=== PATIENT | female | born 1985 | race Caucasian/White ===

== ENCOUNTER → 2020-09-30 | Outpatient (CLI) | payer OTHER ==
--- NOTE | 2020-10-01 23:46 | ECWPNPC ---
PATIENT NAME: SONIA OLVERA : 1985 GENDER: FEMALE VISIT DATE: 09/30/2020 DISCHARGE DATE: 09/30/20 0940 VISIT LOCKED DATE TIME: PHYSICIAN: WILLIAM BAIRES RESOURCE: WILLIAM BAIRES REASON FOR APPOINTMENT 1. LOW BACK PAIN HISTORY OF PRESENT ILLNESS DEPRESSION SCREENING: PHQ-9 LITTLE INTEREST OR PLEASURE IN DOING THINGSSEVERAL DAYS FEELING DOWN, DEPRESSED, OR HOPELESSSEVERAL DAYS TROUBLE FALLING OR STAYING ASLEEP, OR SLEEPING TOO MUCHNEARLY EVERY DAY FEELING TIRED OR HAVING LITTLE ENERGYSEVERAL DAYS POOR APPETITE OR OVEREATING NOT AT ALL FEELING BAD ABOUT YOURSELF-OR THAT YOU ARE A FAILURE OR HAVE LET YOURSELF OR YOUR FAMILY DOWN NEARLY EVERY DAY TROUBLE CONCENTRATING ON THINGS, SUCH READING THE NEWSPAPER OR WATCHING TELEVISION SEVERAL DAYS MOVING OR SPEAKING SO SLOWLY THAT OTHER PEOPLE COULD HAVE NOTICED. OR THE OPPOSITE- BEING SO FIDGETY OR RESTLESS THAT YOU HAVE BEEN MOVING AROUND A LOT MORE THAN USUALSEVERAL DAYS THOUGHTS THAT YOU WOULD BE BETTER OFF , OR OF HURTING YOURSELF IN SOME WAY?SEVERAL DAYS(CONSIDER SUICIDE ASSESSMENT RISK) TOTAL SCORE:12 INTERPRETATIONMODERATE DEPRESSION PHQ-2 (2015 EDITION) LITTLE INTEREST OR PLEASURE IN DOING THINGS?SEVERAL DAYS FEELING DOWN, DEPRESSED, OR HOPELESS?MORE THAN HALF THE DAYS TOTAL SCORE3 GENERAL: 34-YEAR-OLD FEMALE BEING REFERRED FOR CHRONIC LOW BACK PAIN. SHE IS NEW TO THE AREA. HISTORY OF LUMBAR SURGERY IN 2012. WAS RECEIVING PAIN MANAGEMENT SERVICES SINCE SURGERY. COMPLAINING OF CONSTANT LEFT LOW BACK PAIN THAT RADIATES INTO LEFT GROIN. PAIN IS AGGRAVATED BY RANGE OF JOINT MOTION OF THE SPINE. HAS RESPONDED WELL TO BOTH GABAPENTIN AND ROBAXIN IN THE PAST. STATES SHE WAS ON NARCOTIC PAIN MEDICATIONS AT ONE POINT AND TOOK HERSELF OFF DUE TO FEARS OF ADDICTION A FEW YEARS AGO. SHE IS NOT INTERESTED IN NARCOTIC PAIN MEDICATION. SHE MAY BE INTERESTED IN TRYING SOME INJECTION THERAPY. DENIES RECENT INJURY. DENIES BOWEL INCONTINENCE OR BLADDER INCONTINENCE. NO RECENT ILLNESS OR SUDDEN WEIGHT LOSS. - - -. FALL RISK SCREENING: SCREENING :ONE FALL WITHOUT INJURY IN THE PAST YEAR IN OCT HER LEFT LEG GAVE OUT ON HER AND SHE SLIPPED DOWN THE STAIRS PAIN SCREENING: PATIENT HAS A COMPLAINT OF ACUTE OR CHRONIC PAIN :YES LOCATION OF PAIN:LOW BACK LEFT HIP INTENSITY OF PAIN (SCALE OF 1 TO 10):5 AVERAGE 4 WHAT DOES YOUR PAIN FEEL LIKE:ACHING, CONTINOUS, STABBING, OTHER TINGLY, COLD, MUSCLE SPASMS DURATION:CONTINOUS, CONSTANT, AWAKENS FROM SLEEP PAIN IS INCREASED BY:ACTIVITIES EVERYTHING PAIN IS DECREASED BY: MEDICATION AND INJECTIONS- GABAPENTIN & ROBAXIN HAS HELPED IN THE PAST. WAS SEEN AT PAIN CENTER IN [place] AND HAD SEVERAL INJECTIONS WHICH WERE EFFECTIVE PAIN HAS INTERFERED WITH THE FOLLOWING: EVERYTHING NURSING NOTE: SEES [facility]-IN [place]- AND IS IN THE PROCESS OF GETTING AN APPT WITH A PSYCHIATRIST - -. PAIN CENTER INTAKE QUESTIONS: DO YOU HAVE A HISTORY OF MRSA? :NO DO YOU TAKE A BLOOD THINNERS? :NO DO YOU HAVE ANY BLEEDING DISORDERS? :NO ANY NEW NUMBNESS OR WEAKNESS IN YOUR LEGS OR ARMS? :NO ANY PACEMAKER,DEFIBRILLATOR, OR DORSAL COLUMN STIMULATOR? :NO DO YOU HAVE ANY RASHES OR OPEN SORES? :NO ARE YOU ALLERGIC TO IV DYE? :NO ARE YOU DIABETIC? :NO ANY NEW PROBLEMS WITH YOUR MEDICATIONS? :NO HAVE YOU RECEIVED A VACCINE IN THE PAST 30 DAYS? :NO DO YOU PLAN TO RECEIVE A VACCINE IN THE NEXT 21 DAYS? :NO DO YOU NEED ANY PRESCRIPTION? :NO DO YOU TAKE ANY IMMUNOSUPPRESSIVE MEDICATIONS? :NO CURRENT MEDICATIONS TAKING SEROQUEL 400 MG TABLET 1 TAB ORALLY DAILY TAKING LAMICTAL 200 MG TABLET 1 TABLET ORALLY THREE TIMES DAILY TAKING PRAZOSIN HCL 1 MG CAPSULE 1 CAP ORALLY BEFORE BEDTIME TAKING ADDERALL 30 MG TABLET 1 TABLET ORALLY DAILY TAKING IBUPROFEN 200 MG TABLET 3 TABLETS WITH FOOD OR MILK NEEDED ORALLY THREE TIMES A DAY NEEDED TAKING MAY USE CBD OIL TOPICALLY OR ORALLY FOUR TIMES DAILY NEEDED MEDICATION LIST REVIEWED AND RECONCILED WITH THE PATIENT PAST MEDICAL HISTORY CHRONIC BACK PAIN WITH SEVERE LEG NERVE DAMAGE-LEFT NECK PAIN BIPOLAR DISORDER ADD DEPRESSION PTSD BILATERAL HIP PAIN OVER WEIGHT ALLERGIES SEASONAL: ITCHY EYES,NASAL CONGESTION SURGICAL HISTORY MICRO DISECTOMY 2013 L4-5,L5-S1 FUSION 2018 WISDOM TEETH EXTRACTION MULTIPLE PAIN INJECTIONS 2017 FAMILY HISTORY MOTHER: , LUNG CANCER 1DAUGHTER(S) - HEALTHY. UNKNOWN HX FOR FATHER. SOCIAL HISTORY GENERAL: TOBACCO USE ARE YOU A:FORMER SMOKER HOW LONG HAS IT BEEN SINCE YOU LAST SMOKED?1-3 MONTHS E-CIGARETTEYES 1-5 TIMES DAILY. PT NOT INTERESTED IN QUITTING LATEX QUESTIONNAIRE LATEX ALLERGY : HAVE YOU EVER DEVELOPED ANY TYPE OF REACTION AFTER HANDLING LATEX PRODUCTS SUCH RUBBER GLOVES, CONDOMS, DIAPHRAGMS, BALLOONS, SOCKS, OR UNDERWEAR?NO LATEX ALLERGY : HAVE YOU EVER DEVELOPED ANY TYPE OF REACTION DURING OR AFTER DENTAL APPOINTMENT, VAGINAL/RECTAL EXAMINATION, SURGICAL PROCEDURE, OR ANY OTHER EXPOSURE?NO LATEX RISK : HAVE YOU EVER HAD ANY DIFFICULTY BREATHING OR HIVES AFTER EATING OR HANDLING ANY FRUITS, OR VEGETABLES; SUCH KIWI, BANANAS, STONE FRUITS, OR CHESTNUTSNO LATEX RISK : DO YOU HAVE A PREVIOUS PERSONAL HISTORY OF MORE THAN NINE SURGERIES, SPINA BIFIDA, OR REPEATED CATHERIZATIONS? NO LATEX RISK : ARE YOU FREQUENTLY EXPOSED TO LATEX PRODUCTS IN YOUR OCCUPATION?NO DATE ASKED : 09/29/2020 ALCOHOL SCREENING DID YOU HAVE A DRINK CONTAINING ALCOHOL IN THE PAST YEAR?NO POINTS0 INTERPRETATIONNEGATIVE RECREATIONAL DRUG USE DRUG USE?NO DOES CBD OIL FOR PAIN/INFLAMMATION LANGUAGE LANGUAGES SPOKEN:JORDANIAN EDUCATION LEVEL OF EDUCATION:HIGH SCHOOL LEARNING BARRIERS / SPECIAL NEEDS BARRIERS TO LEARNING?YES COMMENTS TROUBLE HEARING AND LIGHT SENSITIVITY HEARING IMPAIRED?YES MATCH-E-BE-NASH-SHE-WISH BAND RIGHT EAR VISION IMPAIRED?YES LIGHT SENSITIVITY. 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 DIET: REGULAR. MARITAL STATUS: . PAIN CLINIC PFS, CLERGY, PUBLIC HEALTH REFERRALS PFS REFERRAL NEEDED?NO CLERGY REFERRAL NEEDED?NO PUBLIC HEALTH REFERRAL NEEDED?NO HAS THE PATIENT BEEN EDUCATED REGARDING HIS/HER PLAN OF CARE?YES HAS THE PATIENT BEEN EDUCATED REGARDING PAIN, THE RISK FOR PAIN, THE IMPORTANCE OF EFFECTIVE PAIN MANAGEMENT, AND THE PAIN ASSESSMENT PROCESS?YES ADVANCE DIRECTIVE ADVANCE DIRECTIVE DISCUSSED WITH PATIENT:YES 09/30/2020 PATIENT DOES NOT HAVE ANY ADVANCED DIRECTIVES AND SHE DECLINES INFORMATION ON HCP AT THIS TIME HOSPITALIZATION/MAJOR DIAGNOSTIC PROCEDURE SURGERIES REVIEW OF SYSTEMS CONSTITUTIONAL: ANY RECENT FEVER NO . CHILLS NO . WEIGHT CHANGE OF UNKNOWN REASONS NO . MUSCULOSKELETAL: ANY UNUSUAL JOINT PAIN OR SWELLING NOT MENTIONED NO . SYSTEMIC LUPUS NO . ANY NEUROMUSCULAR DISORDER NOT MENTIONED NO . LYME DISEASE NO . GASTROENTEROLOGY: ANY NEW CHANGE IN BOWEL CONTROL? NO . HISTORY OF LIVER DISORDER NOT MENTIONED NO . HISTORY OF UNUSUAL ABDOMINAL PAIN OR CRAMPING NOT MENTIONED NO . NO CONSTIPATION. GENITOURINARY: ANY NEW CHANGE IN BLADDER CONTROL? NO . ANY RENAL/KIDNEY CONDITON NOT MENTIONED NO . NEUROLOGY: HISTORY OF TBI NOT MENTIONED NO . OTHER NEW NUMBNESS OR PAIN PATTERNS NOT MENTIONED NO . NEW ONSET DIZZINESS OR NEUROLOGICAL CHANGES NOT MENTIONED NO . HISTORY OF SEVERE HEADACHES NOT MENTIONED NO . HISTORY OF STROKE OR NEUROLOGICAL DISORDER NOT MENTIONED NO . CARDIOLOGY: HEART SURGERY NO . CONGESTIVE HEART FAILURE/FLUID OVERLOAD NOT MENTIONED NO . HISTORY OF CHEST PAIN,IRREGULAR HEART BEAT NOT MENTIONED NO . RESPIRATORY: SHORTNESS OF BREATH ON EXERTION, WHEEZES, UNUSUAL COUGH NOT MENTIONED NO . ENDOCRINOLOGY: ADRENAL GLAND OR THYROID DISORDERS NOT MENTIONED NO . UNUSUAL URINATION, DIZZINESS OR LETHARGY NOT MENTIONED NO . VITAL SIGNS WT 242.4 LBS, HT 64 IN, BMI 41.60 INDEX, BP 135/96 MM HG, HR 96 /MIN, RR 18 /MIN, TEMP 98.5 F, OXYGEN SAT % 99%, SAFE IN ENV? (Y/N) Y, NA INITIALS TX 08:38, REVIEWED BY: Betty GARCIA RN, LMP: 09/13/2020. EXAMINATION GENERAL EXAMINATION: GENERAL AWAKE,ALERT ,PLEASANT . PSYCH AFFECT NORMAL . NECK: TRACHEA MIDLINE. NO CERVICAL OR SUPRACLAVICULAR LYMPHADENOPATHY NOTED. LUNGS: LUNG BERGER ARE CLEAR TO AUSCULTATION BILATERALLY. GOOD MOVEMENT OF AIR . HEART: S1, S2 IN A REGULAR RATE AND RHYTHM. NO SIGNIFICANT MURMURS, RUBS OR GALLOPS NOTED . ABDOMEN: SOFT/NONTENDER. MUSCULOSKELETAL: MUSCLE STRENGTH TESTING : MILD WEAKNESS NOTED OVER LEFT LEG. LUMBAR: PALPATION: NEGATIVE FOR PAIN OVER L/S SPINE. NEGATIVE FOR PAIN OVER L/S PARASPINALS. , TRIGGER POINTS:. CERVICAL: NEGATIVE FOR PAIN WITH PALPATION OF CERVICAL SPINE. NEGATIVE FOR PAIN WITH PALPATION OF CERVICAL PARASPINALS. NEGATIVE FOR PAIN WITH PALPATION OF TRAPEZIUS BILAT. SKIN: NO RASH OR SKIN LESIONS. NEUROLOGIC EXAM:DECREASED SENSATION TO LIGHT TOUCH LEFT LATERAL THIGH. DIAGNOSTIC TESTS REVIEWED MRI L/S SPINE-2018 . ASSESSMENTS POSTLAMINECTOMY SYNDROME - M96.1 (PRIMARY) TREATMENT POSTLAMINECTOMY SYNDROME START GABAPENTIN CAPSULE, 100 MG, 1 CAPSULE, ORALLY, BID, 30 DAY(S), 60 CAPSULE, REFILLS 2 START ROBAXIN-750 TABLET, 750 MG, 1 TABLET, ORALLY, BID NEEDED FOR SEVERE PAIN, 30 DAY(S), 45, REFILLS 2 NOTES: START GABAPENTIN 100 MG 1 AT BEDTIME 3 DAYS THEN INCREASE TO MORNING AND NIGHT. START ROBAXIN 750 MG 1 EVERY 8 HOURS NEEDED FOR SEVERE PAIN EPISODES WITH MAXIMUM DAILY DOSE OF 2. PATIENT WILL CONTINUE WITH TOPICAL CBD PRODUCTS. FOLLOW-UP WILL BE SCHEDULED IN 2 MONTHS. PREVENTIVE MEDICINE PAIN CLINIC TEACHING: MEDICATIONS PATIENT DECLINED PRINTED INFORMATION ON GABAPENTIN AND ROBAXIN STATING SHE HAS TAKEN THEM IN THE PAST AND IS FAMILIAR WITH THEM. ALSO DECLINED MED REVIEW . PROCEDURE CODES FA211 ESTABILISHED PATIENT [facility] CHARGE DISPOSITION & COMMUNICATION FOLLOW UP 2 MONTHS (REASON: FOLLOW-UP ON NEW START OF ROBAXIN/GABAPENTIN FOR POST LAMINECTOMY SYNDROME) ELECTRONICALLY SIGNED BY IMTIAZ CASTELLON ON 10/01/2020 AT 11:47 AM EST DISCLAIMER : THIS IS A VISIT SUMMARY EXTRACTED FROM THE [employer] CHART. IT IS NOT A COPY OF THE [employer] PROGRESS NOTE. JUNAID
== END ==
LOC: M PAIN 08:30
PROVIDERS: ATTEND Nurse Practitioner Family
DX: M96.1 Postlaminectomy syndrome, not elsewhere classified (principal); M54.2 Cervicalgia; F31.9 Bipolar disorder, unspecified; F90.9 Attention-deficit hyperactivity disorder, unspecified type; F43.10 Post-traumatic stress disorder, unspecified; E66.3 Overweight; F17.290 Nicotine dependence, other tobacco product, uncomplicated; Z68.41 Body mass index [BMI] 40.0-44.9, adult; J30.2 Other seasonal allergic rhinitis; Z79.899 Other long term (current) drug therapy

== ENCOUNTER → 2020-11-30 | Outpatient (CLI) | payer OTHER ==
--- NOTE | 2020-12-02 01:02 | ECWPNPC ---
PATIENT NAME: SONIA OLVERA : 1985 GENDER: FEMALE VISIT DATE: 11/30/2020 DISCHARGE DATE: 11/30/20 1226 VISIT LOCKED DATE TIME: PHYSICIAN: WILLIAM BAIRES RESOURCE: WILLIAM BAIRES REASON FOR APPOINTMENT 1. FOLLOW-UP ON NEW START OF ROBAXIN/GABAPENTIN FOR POST LAMINECTOMY SYNDROME HISTORY OF PRESENT ILLNESS GENERAL: HERE FOR FOLLOW-UP OF PERSISTENT LOW BACK PAIN WITH A HISTORY OF POSTLAMINECTOMY SYNDROME. AT HER INITIAL VISIT A FEW MONTHS AGO WE STARTED HER ON GABAPENTIN 100 MG TWICE A DAY AND ROBAXIN TWICE A DAY. STATES MEDICATION IS HELPFUL BUT SHE FEELS IT WEARS OFF MID DAY. WORST AREA OF PAIN IS LEFT HIP WITH RADIATION INTO LEFT GROIN. THIS HAS BEEN A CHRONIC ISSUE BUT HAS BEEN AGGRAVATED AFTER A FALL INJURY A FEW MONTHS AGO. REVIEWED X-RAY IMAGING OF HER LEFT HIP. PATIENT STATES SHE HAD IMPROVEMENT WITHL LEFT HIP INJECTION AT PAIN CLINIC IN [place] IN THE PAST. -. FALL RISK SCREENING: SCREENING :TWO OR MORE FALLS WITH INJURY IN THE PAST YEAR PATIENT WENT TO [facility] FOR TREATMENT FOR ONE OF THE INJURIES AFTER FALLING DOWN STAIRS. PAIN SCREENING: PATIENT HAS A COMPLAINT OF ACUTE OR CHRONIC PAIN :YES LOCATION OF PAIN:LOW BACK, LEFT HIP INTENSITY OF PAIN (SCALE OF 1 TO 10):6 WHAT DOES YOUR PAIN FEEL LIKE:CONTINOUS, INTERMITTENT, SHARP, STABBING, OTHER POPPING, PINS AND NEEDLES DURATION:CONTINOUS, STEADY PAIN IS INCREASED BY:ACTIVITIES, PROLONGED STANDING PAIN IS DECREASED BY:USE OF PAIN MEDICATIONS GABAPENTIN, MOTRIN, MUSCLE RELAXERS, HEAT NURSING NOTE: -. PAIN CENTER INTAKE QUESTIONS: DO YOU HAVE A HISTORY OF MRSA? :NO DO YOU TAKE A BLOOD THINNERS? :NO DO YOU HAVE ANY BLEEDING DISORDERS? :NO ANY NEW NUMBNESS OR WEAKNESS IN YOUR LEGS OR ARMS? :NO ANY PACEMAKER,DEFIBRILLATOR, OR DORSAL COLUMN STIMULATOR? :NO DO YOU HAVE ANY RASHES OR OPEN SORES? :NO ARE YOU ALLERGIC TO IV DYE? :NO ARE YOU DIABETIC? :NO ANY NEW PROBLEMS WITH YOUR MEDICATIONS? :NO HAVE YOU RECEIVED A VACCINE IN THE PAST 30 DAYS? :NO DO YOU PLAN TO RECEIVE A VACCINE IN THE NEXT 21 DAYS? :NO DO YOU NEED ANY PRESCRIPTION? :YES GABAPENTIN AND ROBAXIN DO YOU TAKE ANY IMMUNOSUPPRESSIVE MEDICATIONS? :NO IS THERE A CHANCE YOU COULD BE ? :NO ARE YOU BREAST FEEDING? :NO CURRENT MEDICATIONS TAKING SEROQUEL 400 MG TABLET 1 TAB ORALLY DAILY TAKING LAMICTAL 200 MG TABLET 1 TABLET ORALLY THREE TIMES DAILY TAKING PRAZOSIN HCL 1 MG CAPSULE 1 CAP ORALLY BEFORE BEDTIME TAKING IBUPROFEN 200 MG TABLET 3 TABLETS WITH FOOD OR MILK NEEDED ORALLY THREE TIMES A DAY NEEDED TAKING MAY USE CBD OIL TOPICALLY OR ORALLY FOUR TIMES DAILY NEEDED TAKING GABAPENTIN 100 MG CAPSULE 1 CAPSULE ORALLY BID TAKING ROBAXIN-750 750 MG TABLET 1 TABLET ORALLY BID NEEDED FOR SEVERE PAIN NOT-TAKING ADDERALL 30 MG TABLET 1 TABLET ORALLY DAILY MEDICATION LIST REVIEWED AND RECONCILED WITH THE PATIENT PAST MEDICAL HISTORY CHRONIC BACK PAIN WITH SEVERE LEG NERVE DAMAGE-LEFT NECK PAIN BIPOLAR DISORDER ADD DEPRESSION PTSD BILATERAL HIP PAIN OVER WEIGHT ALLERGIES SEASONAL: ITCHY EYES,NASAL CONGESTION SOCIAL HISTORY GENERAL: TOBACCO USE ARE YOU A:FORMER SMOKER HOW LONG HAS IT BEEN SINCE YOU LAST SMOKED?1-3 MONTHS E-CIGARETTEYES 1-5 TIMES DAILY. PT NOT INTERESTED IN QUITTING LATEX QUESTIONNAIRE LATEX ALLERGY : HAVE YOU EVER DEVELOPED ANY TYPE OF REACTION AFTER HANDLING LATEX PRODUCTS SUCH RUBBER GLOVES, CONDOMS, DIAPHRAGMS, BALLOONS, SOCKS, OR UNDERWEAR?NO LATEX ALLERGY : HAVE YOU EVER DEVELOPED ANY TYPE OF REACTION DURING OR AFTER DENTAL APPOINTMENT, VAGINAL/RECTAL EXAMINATION, SURGICAL PROCEDURE, OR ANY OTHER EXPOSURE?NO LATEX RISK : HAVE YOU EVER HAD ANY DIFFICULTY BREATHING OR HIVES AFTER EATING OR HANDLING ANY FRUITS, OR VEGETABLES; SUCH KIWI, BANANAS, STONE FRUITS, OR CHESTNUTSNO LATEX RISK : DO YOU HAVE A PREVIOUS PERSONAL HISTORY OF MORE THAN NINE SURGERIES, SPINA BIFIDA, OR REPEATED CATHERIZATIONS? NO LATEX RISK : ARE YOU FREQUENTLY EXPOSED TO LATEX PRODUCTS IN YOUR OCCUPATION?NO DATE ASKED : 11/30/2020 ALCOHOL USE: NO. ALCOHOL SCREENING DID YOU HAVE A DRINK CONTAINING ALCOHOL IN THE PAST YEAR?NO POINTS0 INTERPRETATIONNEGATIVE RECREATIONAL DRUG USE DRUG USE?NO DOES CBD OIL FOR PAIN/INFLAMMATION LANGUAGE LANGUAGES SPOKEN:ECU[place]OREAN EDUCATION LEVEL OF EDUCATION:HIGH SCHOOL LEARNING BARRIERS / SPECIAL NEEDS CHANGE FROM LAST VISIT?NO BARRIERS TO LEARNING?YES COMMENTS TROUBLE HEARING AND LIGHT SENSITIVITY HEARING IMPAIRED?YES [place] RIGHT EAR VISION IMPAIRED?YES LIGHT SENSITIVITY. 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 DIET: REGULAR. MARITAL STATUS: . - PFS REFERRAL NEEDED?NO CLERGY REFERRAL NEEDED?NO PUBLIC HEALTH REFERRAL NEEDED?NO HAS THE PATIENT BEEN EDUCATED REGARDING HIS/HER PLAN OF CARE?YES HAS THE PATIENT BEEN EDUCATED REGARDING PAIN, THE RISK FOR PAIN, THE IMPORTANCE OF EFFECTIVE PAIN MANAGEMENT, AND THE PAIN ASSESSMENT PROCESS?YES ADVANCE DIRECTIVE ADVANCE DIRECTIVE DISCUSSED WITH PATIENT:YES 09/30/2020 PATIENT DOES NOT HAVE ANY ADVANCED DIRECTIVES AND SHE DECLINES INFORMATION ON HCP AT THIS TIME REVIEW OF SYSTEMS CONSTITUTIONAL: ANY RECENT FEVER NO . CHILLS NO . WEIGHT CHANGE OF UNKNOWN REASONS NO . GASTROENTEROLOGY: NEW UNEXPLAINABLE CHANGES IN BOWEL CONTROL NO . CONSTIPATION NO . GENITOURINARY: ANY NEW CHANGE IN BLADDER CONTROL? NO . NEUROLOGY: NEW ONSET DIZZINESS OR NEUROLOGICAL CHANGES NOT MENTIONED NO . NEW NUMBNESS OR PAIN PATTERNS NOT MENTIONED AND PERTINENT TO TODAY'S VISIT NO . CARDIOLOGY: NEW CHEST PRESSURE NO . NEW CHEST PAIN NO . RESPIRATORY: UNEXPLAINABLE COUGH NO . NEW SHORTNESS OF BREATH NO . VITAL SIGNS WT 247.4 LBS, HT 64 IN, BMI 42.46 INDEX, BP 130/85 MM HG, HR 109 /MIN, RR 18 /MIN, TEMP 98.9 F, OXYGEN SAT % 98%, SAFE IN ENV? (Y/N) YES, NA INITIALS ME 11:45, REVIEWED BY: WILMA RIGGINS MA. EXAMINATION GENERAL EXAMINATION: GENERALNO ACUTE DISTRESS, WELL NOURISHED AND HYDRATED. PSYCHAPPROPRIATE MOOD AND AFFECT . LUNGS:CLEAR TO AUSCULTATION BILATERALLY, NO WHEEZES, RHONCHI, RALES. HEART:NO MURMURS, REGULAR RATE AND RHYTHM. MUSCULOSKELETAL:SPECIFIC POINT TENDERNESS NOTED OVER LEFT HIP . ASSESSMENTS ACUTE PAIN OF LEFT HIP - M25.552 (PRIMARY) TREATMENT ACUTE PAIN OF LEFT HIP INCREASE GABAPENTIN CAPSULE, 300 MG, 1 CAPSULE, ORALLY, BID, 90 DAY(S), 180 CAPSULE, REFILLS 0 REFILL ROBAXIN-750 TABLET, 750 MG, 1 TABLET, ORALLY, BID NEEDED FOR SEVERE PAIN, 90 DAY(S), 180, REFILLS 0 MRI : HIP, [id number] NOTES: MRI LEFT HIP TO REVIEW FOR INTERVENTIONAL TREATMENT OPTIONS DUE TO INCREASED PAIN OVER LEFT HIP AFTER FALL INJURY A FEW MONTHS AGO. X-RAYS OF LEFT HIP ARE REVIEWED DATED 2018. INCREASE GABAPENTIN TO 300 MG CAPSULE TWICE A DAY. CONTINUE USE OF ROBAXIN FOR SEVERE PAIN EPISODES. PROCEDURE CODES FA211 ESTABILISHED PATIENT [facility] FACILITY CHARGE DISPOSITION & COMMUNICATION FOLLOW UP 2 MONTHS (REASON: REVIEW MRI LEFT HIP) ELECTRONICALLY SIGNED BY IMTIAZ CASTELLON ON 12/01/2020 AT 10:38 PM EST DISCLAIMER : THIS IS A VISIT SUMMARY EXTRACTED FROM THE [employer] CHART. IT IS NOT A COPY OF THE [employer] PROGRESS NOTE. CAIND
== END ==
LOC: M PAIN 11:30
PROVIDERS: ATTEND Nurse Practitioner Family
DX: M25.552 Pain in left hip (principal); F17.290 Nicotine dependence, other tobacco product, uncomplicated; Z86.59 Personal history of other mental and behavioral disorders; E66.01 Morbid (severe) obesity due to excess calories; Z68.41 Body mass index [BMI] 40.0-44.9, adult; Z79.899 Other long term (current) drug therapy

== ENCOUNTER → 2021-01-29 | Outpatient (CLI) | payer OTHER ==
--- NOTE | 2021-02-03 06:38 | ECWPNPC ---
PATIENT NAME: SONIA OLVERA : 1985 GENDER: FEMALE VISIT DATE: 01/29/2021 DISCHARGE DATE: 01/29/21 1421 VISIT LOCKED DATE TIME: PHYSICIAN: WILLIAM BAIRES RESOURCE: WILLIAM BAIRES REASON FOR APPOINTMENT 1. REVIEW MRI LEFT HIP HISTORY OF PRESENT ILLNESS GENERAL: HERE FOR FOLLOW-UP OF CHRONIC LOW BACK PAIN WITH LEFT LEG RADICULAR SYMPTOMS. MRI OF THE LEFT HIP IS REVIEWED AND IS NORMAL. PATIENT STATES SHE CONTINUES TO HAVE LEFT GROIN DISCOMFORT ESPECIALLY WITH BENDING. MRI OF THE LUMBOSACRAL SPINE IS REVIEWED. THIS IS SHOWING A LOT OF PATHOLOGY. SHE IS STATUS POST LUMBAR SURGERY. DISCUSSED CAUDAL EPIDURAL STEROID INJECTION. FINDS GABAPENTIN 300 MG TWICE A DAY HELPFUL. FINDS ROBAXIN 750 MG TAB HELPFUL. DISCUSSED MEDICATION TREATMENT PLAN. -. FALL RISK SCREENING: SCREENING 2 FALL WITHIN 4 MONTHS DID NOT GO THE ER FOR ANY FALLS. PAIN SCREENING: PATIENT HAS A COMPLAINT OF ACUTE OR CHRONIC PAIN :YES LOCATION OF PAIN:LEFT HIP INTENSITY OF PAIN (SCALE OF 1 TO 10):4 WHAT DOES YOUR PAIN FEEL LIKE:THROBBING, OTHER NUMB DURATION:CONTINOUS, CONSTANT, ALL DAY PAIN IS INCREASED BY:OTHERS WALKING UP AND ERIC THE STAIRS PAIN IS DECREASED BY:USE OF PAIN MEDICATIONS NURSING NOTE: -. PAIN CENTER INTAKE QUESTIONS: DO YOU HAVE A HISTORY OF MRSA? :NO DO YOU TAKE A BLOOD THINNERS? :NO DO YOU HAVE ANY BLEEDING DISORDERS? :NO ANY NEW NUMBNESS OR WEAKNESS IN YOUR LEGS OR ARMS? :NO ANY PACEMAKER,DEFIBRILLATOR, OR DORSAL COLUMN STIMULATOR? :NO DO YOU HAVE ANY RASHES OR OPEN SORES? :NO ARE YOU ALLERGIC TO IV DYE? :NO ARE YOU DIABETIC? :NO ANY NEW PROBLEMS WITH YOUR MEDICATIONS? :NO HAVE YOU RECEIVED A VACCINE IN THE PAST 30 DAYS? :NO DO YOU PLAN TO RECEIVE A VACCINE IN THE NEXT 21 DAYS? :NO DO YOU NEED ANY PRESCRIPTION? :YES GABAPENTIN AND ROBAXIN DO YOU TAKE ANY IMMUNOSUPPRESSIVE MEDICATIONS? :NO IS THERE A CHANCE YOU COULD BE ? :NO ARE YOU BREAST FEEDING? :NO CURRENT MEDICATIONS TAKING SEROQUEL 400 MG TABLET 1 TAB ORALLY DAILY TAKING LAMICTAL 200 MG TABLET 1 TABLET ORALLY THREE TIMES DAILY TAKING PRAZOSIN HCL 1 MG CAPSULE 1 CAP ORALLY BEFORE BEDTIME TAKING IBUPROFEN 200 MG TABLET 3 TABLETS WITH FOOD OR MILK NEEDED ORALLY THREE TIMES A DAY NEEDED TAKING MAY USE CBD OIL TOPICALLY OR ORALLY FOUR TIMES DAILY NEEDED TAKING ROBAXIN-750 750 MG TABLET 1 TABLET ORALLY BID NEEDED FOR SEVERE PAIN TAKING GABAPENTIN 300 MG CAPSULE 1 CAPSULE ORALLY BID NOT-TAKING ADDERALL 30 MG TABLET 1 TABLET ORALLY DAILY MEDICATION LIST REVIEWED AND RECONCILED WITH THE PATIENT PAST MEDICAL HISTORY CHRONIC BACK PAIN WITH SEVERE LEG NERVE DAMAGE-LEFT NECK PAIN BIPOLAR DISORDER ADD DEPRESSION PTSD BILATERAL HIP PAIN OVER WEIGHT ALLERGIES SEASONAL: ITCHY EYES,NASAL CONGESTION SOCIAL HISTORY GENERAL: TOBACCO USE ARE YOU A:FORMER SMOKER HOW LONG HAS IT BEEN SINCE YOU LAST SMOKED?1-3 MONTHS VAPORNO E-CIGARETTENO 1-5 TIMES DAILY. PT NOT INTERESTED IN QUITTING LATEX QUESTIONNAIRE LATEX ALLERGY : HAVE YOU EVER DEVELOPED ANY TYPE OF REACTION AFTER HANDLING LATEX PRODUCTS SUCH RUBBER GLOVES, CONDOMS, DIAPHRAGMS, BALLOONS, SOCKS, OR UNDERWEAR?NO LATEX ALLERGY : HAVE YOU EVER DEVELOPED ANY TYPE OF REACTION DURING OR AFTER DENTAL APPOINTMENT, VAGINAL/RECTAL EXAMINATION, SURGICAL PROCEDURE, OR ANY OTHER EXPOSURE?NO LATEX RISK : HAVE YOU EVER HAD ANY DIFFICULTY BREATHING OR HIVES AFTER EATING OR HANDLING ANY FRUITS, OR VEGETABLES; SUCH KIWI, BANANAS, STONE FRUITS, OR CHESTNUTSNO LATEX RISK : DO YOU HAVE A PREVIOUS PERSONAL HISTORY OF MORE THAN NINE SURGERIES, SPINA BIFIDA, OR REPEATED CATHERIZATIONS? NO LATEX RISK : ARE YOU FREQUENTLY EXPOSED TO LATEX PRODUCTS IN YOUR OCCUPATION?NO DATE ASKED : 01/29/2021 ALCOHOL USE: NO. ALCOHOL SCREENING DID YOU HAVE A DRINK CONTAINING ALCOHOL IN THE PAST YEAR?NO POINTS0 INTERPRETATIONNEGATIVE RECREATIONAL DRUG USE DRUG USE?NO DOES CBD OIL FOR PAIN/INFLAMMATION LANGUAGE LANGUAGES SPOKEN:[place] EDUCATION LEVEL OF EDUCATION:HIGH SCHOOL LEARNING BARRIERS / SPECIAL NEEDS CHANGE FROM LAST VISIT?NO BARRIERS TO LEARNING?YES COMMENTS TROUBLE HEARING AND LIGHT SENSITIVITY HEARING IMPAIRED?YES [place] RIGHT EAR VISION IMPAIRED?YES LIGHT SENSITIVITY. 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 DIET: REGULAR. MARITAL STATUS: . - PFS REFERRAL NEEDED?NO CLERGY REFERRAL NEEDED?NO PUBLIC HEALTH REFERRAL NEEDED?NO HAS THE PATIENT BEEN EDUCATED REGARDING HIS/HER PLAN OF CARE?YES HAS THE PATIENT BEEN EDUCATED REGARDING PAIN, THE RISK FOR PAIN, THE IMPORTANCE OF EFFECTIVE PAIN MANAGEMENT, AND THE PAIN ASSESSMENT PROCESS?YES ADVANCE DIRECTIVE ADVANCE DIRECTIVE DISCUSSED WITH PATIENT:YES 09/30/2020 PATIENT DOES NOT HAVE ANY ADVANCED DIRECTIVES AND SHE DECLINES INFORMATION ON HCP AT THIS TIME REVIEW OF SYSTEMS CONSTITUTIONAL: ANY RECENT FEVER NO . CHILLS NO . WEIGHT CHANGE OF UNKNOWN REASONS NO . GASTROENTEROLOGY: NEW UNEXPLAINABLE CHANGES IN BOWEL CONTROL NO . CONSTIPATION NO . GENITOURINARY: ANY NEW CHANGE IN BLADDER CONTROL? NO . NEUROLOGY: NEW ONSET DIZZINESS OR NEUROLOGICAL CHANGES NOT MENTIONED NO . NEW NUMBNESS OR PAIN PATTERNS NOT MENTIONED AND PERTINENT TO TODAY'S VISIT NO . CARDIOLOGY: NEW CHEST PRESSURE NO . PATIENT DENIES NO . RESPIRATORY: UNEXPLAINABLE COUGH NO . NEW SHORTNESS OF BREATH NO . VITAL SIGNS WT 255.8 LBS, HT 64 IN, BMI 43.90 INDEX, BP 136/69 MM HG, HR 98 /MIN, RR 18 /MIN, TEMP 97.6 F, OXYGEN SAT % 96%, SAFE IN ENV? (Y/N) YES, NA INITIALS AW 1320T.PAVEL GILBERT. EXAMINATION GENERAL EXAMINATION: GENERAL AWAKE,ALERT ,PLEASANT . PSYCH AFFECT NORMAL . LUNGS: LUNG BERGER ARE CLEAR TO AUSCULTATION BILATERALLY. GOOD MOVEMENT OF AIR . HEART: S1, S2 IN A REGULAR RATE AND RHYTHM. NO SIGNIFICANT MURMURS, RUBS OR GALLOPS NOTED . LUMBAR: PALPATION: + FOR PAIN OVER L/S SPINE. + FOR PAIN OVER L/S PARASPINALS SLE: POSITIVE OVER LEFT LEG AT 45 DEGREES. WELL-HEALED SURGICAL SCAR L/S AXIS.. DIAGNOSTIC TESTS REVIEWED MRI L/S SPINE-2018 MRI LEFT HIP 01/05/21. ASSESSMENTS PROTRUSION OF INTERVERTEBRAL DISC OF LUMBOSACRAL REGION - M51.27 (PRIMARY) LUMBOSACRAL RADICULOPATHY - M54.17 TREATMENT PROTRUSION OF INTERVERTEBRAL DISC OF LUMBOSACRAL REGION INCREASE GABAPENTIN CAPSULE, 300 MG, 1 CAPSULE, ORALLY, TID, 90 DAY(S), 270 CAPSULE, REFILLS 1 REFILL ROBAXIN-750 TABLET, 750 MG, 1 TABLET, ORALLY, BID NEEDED FOR SEVERE PAIN, 90 DAY(S), 180, REFILLS 1 SALINE LOCK (ORDERED FOR 02/05/2021) MEDICATION: OXYCODONE HCL TAB 10MG ORALLY (ORDERED FOR 02/05/2021) MEDICATION: VALIUM TAB 10MG ORALLY (DIAZEPAM) (ORDERED FOR 02/05/2021) NOTES: CAUDAL EPIDURAL STEROID INJECTION. CLINICAL NOTES: PREPROCEDURE AND PROCEDURE INFORMATION PRINTED AND PROVIDED TO PATIENT. ROSENDO RIGGINS MA. PROCEDURE CODES FA211 ESTABILISHED PATIENT [facility] CHARGE DISPOSITION & COMMUNICATION FOLLOW UP POST (REASON: CAUDAL EPIDURAL STEROID INJECTION) ELECTRONICALLY SIGNED BY IMTIAZ CASTELLON ON 02/02/2021 AT 02:26 PM EDT DISCLAIMER : THIS IS A VISIT SUMMARY EXTRACTED FROM THE [employer] CHART. IT IS NOT A COPY OF THE [employer] PROGRESS NOTE. JUNAID
== END ==
LOC: M PAIN 13:30
PROVIDERS: ATTEND Nurse Practitioner Family
DX: M51.17 Intervertebral disc disorders with radiculopathy, lumbosacral region (principal); F31.9 Bipolar disorder, unspecified; F43.10 Post-traumatic stress disorder, unspecified; E66.3 Overweight; M54.2 Cervicalgia; J30.2 Other seasonal allergic rhinitis; Z87.891 Personal history of nicotine dependence; Z79.899 Other long term (current) drug therapy

== ENCOUNTER → 2021-02-26 | Outpatient (CLI) | payer OTHER | LOC: M LABSMTC 10:43 | PROVIDERS: ATTEND Anesthesiology | DX: Z01.812 Encounter for preprocedural laboratory examination (principal); Z20.822 Contact with and (suspected) exposure to COVID-19 ==

== ENCOUNTER → 2021-03-03 | Outpatient (CLI) | payer OTHER ==
[~2021-03-03] MED LIST: ISOVUE-M 300 61% 15ML VIAL As Ordered ONE; LIDOCAINE 1% SDV 30ML VIAL As Ordered ONE; diazePAM 5MG TABLET As Ordered ONE; methylPREDNISolone SUSP 40MG/ML 1ML VIAL (DEPO MEDROL) As Ordered ONE; oxyCODONE 5MG TAB As Ordered ONE
--- NOTE | 2021-03-04 00:39 | ECWPNPC ---
PATIENT NAME: SONIA OLVERA : 1985 GENDER: FEMALE VISIT DATE: 03/03/2021 DISCHARGE DATE: 03/03/21 1106 VISIT LOCKED DATE TIME: PHYSICIAN: ALVIN WEBSTER MD RESOURCE: ALVIN WEBSTER MD REASON FOR APPOINTMENT 1. CAUDAL EPIDURAL STEROID INJECTION HISTORY OF PRESENT ILLNESS GENERAL: 35-YEAR-OLD FEMALE PATIENT WITH A HISTORY OF CHRONIC LOW BACK AND MAINLY LEFT LEG PAIN. THE PATIENT HAS BEEN SUFFERING FROM THIS CONDITION SINCE A SURGERY THAT WAS DONE IN 2018 BUT SHE HAD A PRIOR SURGERY DONE IN 2011. SHE HAS BEEN SUFFERING FROM BACK AND LEG PAIN FOR MANY YEARS. ORIGINALLY THEY DID A MICRODISSECTION AND THEN A FUSION. THE PATIENT DESCRIBES THE PAIN ACHING, THROBBING AND SHOOTING WITH A PAIN SCORE RANGING FROM 3-8/10 DEPENDING ON ACTIVITIES. THE PAIN IS MAINLY IN THE BACK WITH RADIATION TO MAINLY THE LEFT BUTTOCK AND LEG AND HIP. THIS IS AFFECTING HER ABILITY TO DO ACTIVITIES SUCH CLEANING HER HOUSE, WALKING DOWN STAIRS, GROCERY SHOPPING. THE PATIENT IS LOOKING FOR HELP. FALL RISK SCREENING: SCREENING : ONE FALL REPORTED IN THE LAST YEAR WITHOUT INJURY. PAIN SCREENING: PATIENT HAS A COMPLAINT OF ACUTE OR CHRONIC PAIN :YES LOCATION OF PAIN:LOW BACK, LEFT HIP INTENSITY OF PAIN (SCALE OF 1 TO 10):5 WHAT DOES YOUR PAIN FEEL LIKE:THROBBING, SHOOTING TINGLING DURATION:CONTINOUS PAIN IS INCREASED BY:ACTIVITIES PAIN IS DECREASED BY:USE OF PAIN MEDICATIONS INJECTIONS NURSING NOTE: -. PAIN CENTER INTAKE QUESTIONS: DO YOU HAVE A HISTORY OF MRSA? :NO DO YOU TAKE A BLOOD THINNERS? :NO DO YOU HAVE ANY BLEEDING DISORDERS? :NO ANY NEW NUMBNESS OR WEAKNESS IN YOUR LEGS OR ARMS? :NO ANY PACEMAKER,DEFIBRILLATOR, OR DORSAL COLUMN STIMULATOR? :NO DO YOU HAVE ANY RASHES OR OPEN SORES? :NO ARE YOU ALLERGIC TO IV DYE? :NO ARE YOU DIABETIC? :NO ANY NEW PROBLEMS WITH YOUR MEDICATIONS? :NO HAVE YOU RECEIVED A VACCINE IN THE PAST 30 DAYS? :NO DO YOU PLAN TO RECEIVE A VACCINE IN THE NEXT 21 DAYS? :NO DO YOU TAKE ANY IMMUNOSUPPRESSIVE MEDICATIONS? :NO ANY HISTORY OF SEIZURES? :NO ANY HISTORY OF CARDIAC ISSUES OR EVENTS? :NO DO YOU HAVE ANY KIDNEY OR LIVER DISEASE? :NO DO YOU HAVE SLEEP APNEA? :NO ANY RECENT HEAD INJURY? :NO DO YOU HAVE ANY NEW INFECTIONS? :NO IS THERE A CHANCE YOU COULD BE ? :NO ARE YOU BREAST FEEDING? :NO WHEN DID YOU LAST EAT? : 03/02/21 1900 WHEN DID YOU LAST DRINK? : 03/03/21 0600 WHAT DID YOU LAST DRINK? : WATER NAME OF PERSON DRIVING YOU HOME? : FREDDY DO YOU HAVE ANY OTHER QUESTIONS OR CONCERNS? : - CURRENT MEDICATIONS TAKING SEROQUEL 400 MG TABLET 1 TAB ORALLY DAILY TAKING LAMICTAL 200 MG TABLET 1 TABLET ORALLY THREE TIMES DAILY TAKING PRAZOSIN HCL 1 MG CAPSULE 1 CAP ORALLY BEFORE BEDTIME TAKING IBUPROFEN 200 MG TABLET 3 TABLETS WITH FOOD OR MILK NEEDED ORALLY THREE TIMES A DAY NEEDED TAKING MAY USE CBD OIL TOPICALLY OR ORALLY FOUR TIMES DAILY NEEDED TAKING GABAPENTIN 300 MG CAPSULE 1 CAPSULE ORALLY TID TAKING ROBAXIN-750 750 MG TABLET 1 TABLET ORALLY BID NEEDED FOR SEVERE PAIN NOT-TAKING ADDERALL 30 MG TABLET 1 TABLET ORALLY DAILY MEDICATION LIST REVIEWED AND RECONCILED WITH THE PATIENT PAST MEDICAL HISTORY CHRONIC BACK PAIN WITH SEVERE LEG NERVE DAMAGE-LEFT NECK PAIN BIPOLAR DISORDER ADD DEPRESSION PTSD BILATERAL HIP PAIN OVER WEIGHT ALLERGIES SEASONAL: ITCHY EYES,NASAL CONGESTION SOCIAL HISTORY GENERAL: TOBACCO USE ARE YOU A:FORMER SMOKER HOW LONG HAS IT BEEN SINCE YOU LAST SMOKED?1-3 MONTHS VAPORNO E-CIGARETTENO 1-5 TIMES DAILY. PT NOT INTERESTED IN QUITTING LATEX QUESTIONNAIRE LATEX ALLERGY : HAVE YOU EVER DEVELOPED ANY TYPE OF REACTION AFTER HANDLING LATEX PRODUCTS SUCH RUBBER GLOVES, CONDOMS, DIAPHRAGMS, BALLOONS, SOCKS, OR UNDERWEAR?NO LATEX ALLERGY : HAVE YOU EVER DEVELOPED ANY TYPE OF REACTION DURING OR AFTER DENTAL APPOINTMENT, VAGINAL/RECTAL EXAMINATION, SURGICAL PROCEDURE, OR ANY OTHER EXPOSURE?NO DATE ASKED : 01/29/2021 LATEX RISK : HAVE YOU EVER HAD ANY DIFFICULTY BREATHING OR HIVES AFTER EATING OR HANDLING ANY FRUITS, OR VEGETABLES; SUCH KIWI, BANANAS, STONE FRUITS, OR CHESTNUTSNO LATEX RISK : DO YOU HAVE A PREVIOUS PERSONAL HISTORY OF MORE THAN NINE SURGERIES, SPINA BIFIDA, OR REPEATED CATHERIZATIONS? NO LATEX RISK : ARE YOU FREQUENTLY EXPOSED TO LATEX PRODUCTS IN YOUR OCCUPATION?NO ALCOHOL USE: NO. ALCOHOL SCREENING DID YOU HAVE A DRINK CONTAINING ALCOHOL IN THE PAST YEAR?NO POINTS0 INTERPRETATIONNEGATIVE RECREATIONAL DRUG USE DRUG USE?NO DOES CBD OIL FOR PAIN/INFLAMMATION LANGUAGE LANGUAGES SPOKEN:[place]AN[place] EDUCATION LEVEL OF EDUCATION:HIGH SCHOOL LEARNING BARRIERS / SPECIAL NEEDS CHANGE FROM LAST VISIT?NO BARRIERS TO LEARNING?YES COMMENTS TROUBLE HEARING AND LIGHT SENSITIVITY HEARING IMPAIRED?YES [place] RIGHT EAR VISION IMPAIRED?YES LIGHT SENSITIVITY. 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 DIET: REGULAR. MARITAL STATUS: . - PFS REFERRAL NEEDED?NO CLERGY REFERRAL NEEDED?NO PUBLIC HEALTH REFERRAL NEEDED?NO HAS THE PATIENT BEEN EDUCATED REGARDING HIS/HER PLAN OF CARE?YES HAS THE PATIENT BEEN EDUCATED REGARDING PAIN, THE RISK FOR PAIN, THE IMPORTANCE OF EFFECTIVE PAIN MANAGEMENT, AND THE PAIN ASSESSMENT PROCESS?YES ADVANCE DIRECTIVE ADVANCE DIRECTIVE DISCUSSED WITH PATIENT:YES 09/30/2020 PATIENT DOES NOT HAVE ANY ADVANCED DIRECTIVES AND SHE DECLINES INFORMATION ON HCP AT THIS TIME REVIEW OF SYSTEMS CONSTITUTIONAL: ANY RECENT FEVER NO . CHILLS NO . WEIGHT CHANGE OF UNKNOWN REASONS NO . GASTROENTEROLOGY: NEW UNEXPLAINABLE CHANGES IN BOWEL CONTROL NO . CONSTIPATION NO . GENITOURINARY: ANY NEW CHANGE IN BLADDER CONTROL? NO . NEUROLOGY: NEW ONSET DIZZINESS OR NEUROLOGICAL CHANGES NOT MENTIONED NO . NEW NUMBNESS OR PAIN PATTERNS NOT MENTIONED AND PERTINENT TO TODAY'S VISIT NO . CARDIOLOGY: NEW CHEST PRESSURE NO . PATIENT DENIES NO . RESPIRATORY: UNEXPLAINABLE COUGH NO . NEW SHORTNESS OF BREATH NO . VITAL SIGNS WT 251.4 LBS, HT 64 IN, BMI 43.15 INDEX, BP 129/72 MM HG, HR 80 /MIN, RR 18 /MIN, TEMP 97.4 F, OXYGEN SAT % 98%, NA INITIALS SC 09:33, REVIEWED BY: EM. EXAMINATION GENERAL: THE PATIENT IS ALERT, ORIENTED TIMES THREE AND COOPERATIVE. LUNGS ARE CLEAR TO AUSCULTATION. HEART SHOWS REGULAR RHYTHM, NO MURMURS AND NO GALLOPS. THE PATIENT IS LIMPING FROM THE RIGHT LEG WHICH IS WEAKER THAN THE LEFT LEG ON FLEXION AND EXTENSION. STRAIGHT LEG RAISE IS POSITIVE FOR RADICULOPATHY AT 60 DEGREES. MRI OF THE LUMBAR SPINE DATED 03/28/2018 SHOWS A DISC EXTRUSION TO THE RIGHT SIDE AND THERE IS ALSO A LEFT DISC PROTRUSION WITH SEVERE SPINAL STENOSIS TO THE LEFT SIDE. ASSESSMENTS LUMBAR POST-LAMINECTOMY SYNDROME - M96.1 (PRIMARY) INTERVERTEBRAL DISC DISORDERS WITH RADICULOPATHY, LUMBAR REGION - M51.16 INTERVERTEBRAL DISC DISORDERS WITH RADICULOPATHY, LUMBOSACRAL REGION - M51.17 TREATMENT LUMBAR POST-LAMINECTOMY SYNDROME LAB: BLOOD UREA NITROGEN (BUN) (ORDERED FOR 03/03/2021) LAB: CREATININE (ORDERED FOR 03/03/2021) [facility] MRI LS SPINE W/O AND WITH [id number] CLINICAL NOTES: I DISCUSSED ALTERNATIVES WITH MS. OLVERA. I WOULD LIKE TO ORDER A NEW MRI WITH AND WITHOUT CONTRAST SHE HAS NOT HAD ONE SINCE HER LAST SURGERY. I WILL ORDER A BUN AND CREATININE TO ASSESS THAT EVERYTHING IS GOOD WITH HER RENAL FUNCTION. I WILL SEE HER IN 3 WEEKS TO REVIEW THE MRI. THE PATIENT REPORTS UNDERSTANDING AND AGREES WITH THE PLAN. I, ROGERIO JENSEN, DOCUMENTED THE ABOVE INFORMATION ACTING A SCRIBE FOR DR. WEBSTER. I HAVE REVIEWED THE ABOVE DOCUMENT, WRITTEN BY ROGERIO JENSEN, DISCOVERY GUIDE, AND I VERIFY THAT IT IS ACCURATE. 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 IT IS NOT A COPY OF THE [employer] PROGRESS NOTE. MTDSharri
== END ==
LOC: M PAIN 10:00
PROVIDERS: ATTEND Anesthesiology
DX: M96.1 Postlaminectomy syndrome, not elsewhere classified (principal); M51.16 Intervertebral disc disorders with radiculopathy, lumbar region; M51.17 Intervertebral disc disorders with radiculopathy, lumbosacral region; Z86.59 Personal history of other mental and behavioral disorders; Z87.891 Personal history of nicotine dependence; E66.01 Morbid (severe) obesity due to excess calories; Z68.41 Body mass index [BMI] 40.0-44.9, adult; Z79.899 Other long term (current) drug therapy
CPT/HCPCS: G0463; J1030; Q9967

== ENCOUNTER → 2021-03-26 | Outpatient (CLI) | payer OTHER ==
--- NOTE | 2021-03-26 16:31 | REPVR ---
PROCEDURE INFORMATION: Exam: MR Lumbar Spine Without and With Contrast Exam date and time: 03/26/2021 11:50 AM Age: 35 years old Clinical indication: Low back pain; Prior surgery; Surgery date: 6+ months; Additional info: Lumbar post laminectomy TECHNIQUE: Imaging protocol: Multiplanar magnetic resonance images of the lumbar spine without and with intravenous contrast. Contrast material: PROHANCE; Contrast volume: 20 ml; Contrast route: INTRAVENOUS (IV); COMPARISON: No relevant prior studies available. FINDINGS: Vertebrae: No anterior wedging deformity. No acute fracture visualized. No destructive osseous lesions identified. Spinal cord: The distal spinal cord and conus medullaris are normal in signal and morphology. The cauda equina nerve roots are normally distributed within the thecal sac, with no clumping or adhesions. Following gadolinium administration, there is no abnormal enhancement. L1-L2: No significant disc disease. No significant spinal canal stenosis. No neural foraminal stenosis. L2-L3: No significant disc disease. No significant spinal canal stenosis. No neural foraminal stenosis. L3-L4: No significant disc disease. No significant spinal canal stenosis. No neural foraminal stenosis. L4-L5: Facet hypertrophy causes mild left neural foraminal stenosis. L5-S1: There has been laminectomy, discectomy, interbody and dorsal fusion at the L5-S1 level. There are no findings of discitis-osteomyelitis. Previous laminectomy, discectomy and fusion. Axial images suggest slight protrusion of the interbody strut graft into the left lateral recess. Correlate with clinical information regarding possible left S1 radiculopathy. There is moderate left and mild right neural foraminal stenosis at this level. IMPRESSION: 1. Previous laminectomy, discectomy, interbody and dorsal fusion at the L5-S1 level. Axial images suggest slight protrusion of the interbody strut graft into the left lateral recess. Correlate with clinical information regarding possible left S1 radiculopathy. 2. Neural foraminal stenosis on the left at L4-L5, eccentric to the left at L5-S1, as above. Electronically signed by: Calli Nix On 03/26/2021 16:30:30 PM
== END ==
LOC: M PLARAD 10:31
PROVIDERS: ATTEND Anesthesiology
DX: M96.1 Postlaminectomy syndrome, not elsewhere classified (principal)

== ENCOUNTER → 2021-04-09 | Outpatient (CLI) | payer OTHER ==
--- NOTE | 2021-04-13 02:54 | ECWPNPC ---
PATIENT NAME: SONIA OLVERA : 1985 GENDER: FEMALE VISIT DATE: 04/09/2021 DISCHARGE DATE: 04/09/21 1441 VISIT LOCKED DATE TIME: PHYSICIAN: WILLIAM BAIRES RESOURCE: WILLIAM BAIRES REASON FOR APPOINTMENT 1. MRI REVIEW HISTORY OF PRESENT ILLNESS DEPRESSION SCREENING: PHQ-9 LITTLE INTEREST OR PLEASURE IN DOING THINGSSEVERAL DAYS FEELING DOWN, DEPRESSED, OR HOPELESSSEVERAL DAYS TROUBLE FALLING OR STAYING ASLEEP, OR SLEEPING TOO MUCHSEVERAL DAYS FEELING TIRED OR HAVING LITTLE ENERGYSEVERAL DAYS POOR APPETITE OR OVEREATING SEVERAL DAYS FEELING BAD ABOUT YOURSELF-OR THAT YOU ARE A FAILURE OR HAVE LET YOURSELF OR YOUR FAMILY DOWN SEVERAL DAYS TROUBLE CONCENTRATING ON THINGS, SUCH READING THE NEWSPAPER OR WATCHING TELEVISION NEARLY EVERY DAY MOVING OR SPEAKING SO SLOWLY THAT OTHER PEOPLE COULD HAVE NOTICED. OR THE OPPOSITE- BEING SO FIDGETY OR RESTLESS THAT YOU HAVE BEEN MOVING AROUND A LOT MORE THAN USUALSEVERAL DAYS THOUGHTS THAT YOU WOULD BE BETTER OFF , OR OF HURTING YOURSELF IN SOME WAY?NOT AT ALL TOTAL SCORE:10 INTERPRETATIONMODERATE DEPRESSION PHQ-2 (2015 EDITION) LITTLE INTEREST OR PLEASURE IN DOING THINGS?SEVERAL DAYS FEELING DOWN, DEPRESSED, OR HOPELESS?SEVERAL DAYS TOTAL SCORE2 GENERAL: HERE FOR FOLLOW-UP OF CHRONIC LOW BACK PAIN WITH LEFT LEG RADICULAR SYMPTOMS. MRI OF THE LS SPINE WITH AND WITHOUT CONTRAST IS REVIEWED. PATIENT HAS HISTORY OF 2 LUMBAR SURGERIES, LAST ONE WAS DONE IN 2018. MRI OF THE LS SPINE IS REVIEWED. SHOWING POSSIBILITY OF SCAR TISSUE CAUSING S1 NERVE IMPINGEMENT. DISCUSSED PROCEEDING WITH CAUDAL EPIDURAL TRIAL WE HAD PREVIOUSLY PLANNED. POTENTIAL RISKS AND BENEFITS WERE REVIEWED. -. FALL RISK SCREENING: SCREENING ONE FALL THIS YEAR, HURT HER BACK DID NOT GO TOT ER. PAIN SCREENING: PATIENT HAS A COMPLAINT OF ACUTE OR CHRONIC PAIN :YES LOCATION OF PAIN:LOW BACK, LEFT HIP INTENSITY OF PAIN (SCALE OF 1 TO 10):5 WHAT DOES YOUR PAIN FEEL LIKE:CONTINOUS, SHARP, OTHER WHEATHER DURATION:CONTINOUS, CONSTANT, ALL DAY PAIN IS INCREASED BY:PROLONGED STANDING ANYTHING FOR A LONG PEROID OF TIME PAIN IS DECREASED BY:USE OF PAIN MEDICATIONS NURSING NOTE: -. PAIN CENTER INTAKE QUESTIONS: DO YOU HAVE A HISTORY OF MRSA? :NO DO YOU TAKE A BLOOD THINNERS? :NO DO YOU HAVE ANY BLEEDING DISORDERS? :NO ANY NEW NUMBNESS OR WEAKNESS IN YOUR LEGS OR ARMS? :YES LEFT LEG GETS VERY WEAKNESS ANY PACEMAKER,DEFIBRILLATOR, OR DORSAL COLUMN STIMULATOR? :NO DO YOU HAVE ANY RASHES OR OPEN SORES? :NO ARE YOU ALLERGIC TO IV DYE? :NO ARE YOU DIABETIC? :NO ANY NEW PROBLEMS WITH YOUR MEDICATIONS? :NO HAVE YOU RECEIVED A VACCINE IN THE PAST 30 DAYS? :NO DO YOU PLAN TO RECEIVE A VACCINE IN THE NEXT 21 DAYS? :NO DO YOU NEED ANY PRESCRIPTION? :YES GABAPENTIN AND ROBAXIN DO YOU TAKE ANY IMMUNOSUPPRESSIVE MEDICATIONS? :NO IS THERE A CHANCE YOU COULD BE ? :NO ARE YOU BREAST FEEDING? :NO CURRENT MEDICATIONS TAKING SEROQUEL 400 MG TABLET 1 TAB ORALLY DAILY TAKING LAMICTAL 200 MG TABLET 1 TABLET ORALLY THREE TIMES DAILY TAKING PRAZOSIN HCL 2 MG CAPSULE 1 CAP ORALLY BEFORE BEDTIME TAKING IBUPROFEN 200 MG TABLET 3 TABLETS WITH FOOD OR MILK NEEDED ORALLY THREE TIMES A DAY NEEDED TAKING MAY USE CBD OIL TOPICALLY OR ORALLY FOUR TIMES DAILY NEEDED TAKING GABAPENTIN 300 MG CAPSULE 1 CAPSULE ORALLY TID TAKING ROBAXIN-750 750 MG TABLET 1 TABLET ORALLY BID NEEDED FOR SEVERE PAIN NOT-TAKING ADDERALL 30 MG TABLET 1 TABLET ORALLY DAILY MEDICATION LIST REVIEWED AND RECONCILED WITH THE PATIENT PAST MEDICAL HISTORY CHRONIC BACK PAIN WITH SEVERE LEG NERVE DAMAGE-LEFT NECK PAIN BIPOLAR DISORDER ADD DEPRESSION PTSD BILATERAL HIP PAIN OVER WEIGHT ONE FALL THIS YEAR, HURT HER BACK DID NOT GO TO THE ER ALLERGIES SEASONAL: ITCHY EYES,NASAL CONGESTION SOCIAL HISTORY GENERAL: TOBACCO USE ARE YOU A:FORMER SMOKER HOW LONG HAS IT BEEN SINCE YOU LAST SMOKED?1-3 MONTHS VAPORNO E-CIGARETTENO 1-5 TIMES DAILY. PT NOT INTERESTED IN QUITTING LATEX QUESTIONNAIRE LATEX ALLERGY : HAVE YOU EVER DEVELOPED ANY TYPE OF REACTION AFTER HANDLING LATEX PRODUCTS SUCH RUBBER GLOVES, CONDOMS, DIAPHRAGMS, BALLOONS, SOCKS, OR UNDERWEAR?NO LATEX ALLERGY : HAVE YOU EVER DEVELOPED ANY TYPE OF REACTION DURING OR AFTER DENTAL APPOINTMENT, VAGINAL/RECTAL EXAMINATION, SURGICAL PROCEDURE, OR ANY OTHER EXPOSURE?NO LATEX RISK : HAVE YOU EVER HAD ANY DIFFICULTY BREATHING OR HIVES AFTER EATING OR HANDLING ANY FRUITS, OR VEGETABLES; SUCH KIWI, BANANAS, STONE FRUITS, OR CHESTNUTSNO LATEX RISK : DO YOU HAVE A PREVIOUS PERSONAL HISTORY OF MORE THAN NINE SURGERIES, SPINA BIFIDA, OR REPEATED CATHERIZATIONS? NO LATEX RISK : ARE YOU FREQUENTLY EXPOSED TO LATEX PRODUCTS IN YOUR OCCUPATION?NO DATE ASKED : 04/09/2021 ALCOHOL USE: NO. ALCOHOL SCREENING DID YOU HAVE A DRINK CONTAINING ALCOHOL IN THE PAST YEAR?NO POINTS0 INTERPRETATIONNEGATIVE RECREATIONAL DRUG USE DRUG USE?NO DOES CBD OIL FOR PAIN/INFLAMMATION LANGUAGE LANGUAGES SPOKEN:[place] EDUCATION LEVEL OF EDUCATION:HIGH SCHOOL LEARNING BARRIERS / SPECIAL NEEDS CHANGE FROM LAST VISIT?NO BARRIERS TO LEARNING?YES COMMENTS TROUBLE HEARING AND LIGHT SENSITIVITY HEARING IMPAIRED?YES [place] RIGHT EAR VISION IMPAIRED?YES LIGHT SENSITIVITY. 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 DIET: REGULAR. MARITAL STATUS: . - PFS REFERRAL NEEDED?NO CLERGY REFERRAL NEEDED?NO PUBLIC HEALTH REFERRAL NEEDED?NO HAS THE PATIENT BEEN EDUCATED REGARDING HIS/HER PLAN OF CARE?YES HAS THE PATIENT BEEN EDUCATED REGARDING PAIN, THE RISK FOR PAIN, THE IMPORTANCE OF EFFECTIVE PAIN MANAGEMENT, AND THE PAIN ASSESSMENT PROCESS?YES ADVANCE DIRECTIVE ADVANCE DIRECTIVE DISCUSSED WITH PATIENT:YES 09/30/2020 PATIENT DOES NOT HAVE ANY ADVANCED DIRECTIVES AND SHE DECLINES INFORMATION ON HCP AT THIS TIME REVIEW OF SYSTEMS CONSTITUTIONAL: ANY RECENT FEVER NO . CHILLS NO . WEIGHT CHANGE OF UNKNOWN REASONS NO . GASTROENTEROLOGY: NEW UNEXPLAINABLE CHANGES IN BOWEL CONTROL NO . CONSTIPATION NO . GENITOURINARY: ANY NEW CHANGE IN BLADDER CONTROL? NO . NEUROLOGY: NEW ONSET DIZZINESS OR NEUROLOGICAL CHANGES NOT MENTIONED NO . NEW NUMBNESS OR PAIN PATTERNS NOT MENTIONED AND PERTINENT TO TODAY'S VISIT NO . CARDIOLOGY: NEW CHEST PRESSURE NO . PATIENT DENIES NO . RESPIRATORY: UNEXPLAINABLE COUGH NO . NEW SHORTNESS OF BREATH NO . VITAL SIGNS WT 247 LBS, HT 64 IN, BMI 42.39 INDEX, BP 148/92 MM HG, REPEAT BP 131/82 MM HG, HR 106 /MIN, RR 18 /MIN, TEMP 97.5 F, OXYGEN SAT % 99%, SAFE IN ENV? (Y/N) YES, NA INITIALS SC 14:03T.PAVEL GILBERT. EXAMINATION GENERAL EXAMINATION: GENERAL AWAKE,ALERT ,PLEASANT . PSYCH AFFECT NORMAL . LUNGS: LUNG BERGER ARE CLEAR TO AUSCULTATION BILATERALLY. GOOD MOVEMENT OF AIR . HEART: S1, S2 IN A REGULAR RATE AND RHYTHM. NO SIGNIFICANT MURMURS, RUBS OR GALLOPS NOTED . LUMBAR: PALPATION: + FOR PAIN OVER L/S SPINE. + FOR PAIN OVER L/S PARASPINALS SLE: POSITIVE OVER LEFT LEG AT 45 DEGREES. WELL-HEALED SURGICAL SCAR L/S AXIS.. DIAGNOSTIC TESTS REVIEWEDMRI L/S SPINE-2017 ,MRI LS SPINE WITH AND WITHOUT CONTRAST MARCH 2021 MRI LEFT HIP 01/05/21. ASSESSMENTS PROTRUSION OF INTERVERTEBRAL DISC OF LUMBOSACRAL REGION - M51.27 (PRIMARY) LUMBOSACRAL RADICULOPATHY - M54.17 TREATMENT PROTRUSION OF INTERVERTEBRAL DISC OF LUMBOSACRAL REGION SALINE LOCK (ORDERED FOR 04/23/2021) MEDICATION: VALIUM TAB 5MG ORALLY (DIAZEPAM) (ORDERED FOR 04/23/2021) MEDICATION: OXYCODONE HCL TAB 5MG ORALLY (ORDERED FOR 04/23/2021) NOTES: CAUDAL EPIDURAL STERIOD INJECTION. PROCEDURE CODES FA211 ESTABILISHED PATIENT [facility] CHARGE DISPOSITION & COMMUNICATION FOLLOW UP POST (REASON: CAUDAL EPIDURAL STERIOD INJECTION) ELECTRONICALLY SIGNED BY IMTIAZ CASTELLON ON 04/12/2021 AT 12:53 PM EDT DISCLAIMER : THIS IS A VISIT SUMMARY EXTRACTED FROM THE [facility] CHART. IT IS NOT A COPY OF THE [facility] PROGRESS NOTE. JUNAID
== END ==
LOC: M PAIN 14:00
PROVIDERS: ATTEND Nurse Practitioner Family
DX: M51.17 Intervertebral disc disorders with radiculopathy, lumbosacral region (principal); M54.2 Cervicalgia; F31.9 Bipolar disorder, unspecified; J30.2 Other seasonal allergic rhinitis; F43.10 Post-traumatic stress disorder, unspecified; Z87.891 Personal history of nicotine dependence; Z79.899 Other long term (current) drug therapy

== ENCOUNTER → 2021-05-08 | Outpatient (CLI) | payer OTHER | LOC: M LABSMTC 10:45 | PROVIDERS: ATTEND Anesthesiology | DX: Z20.822 Contact with and (suspected) exposure to COVID-19 (principal) ==

== ENCOUNTER → 2021-05-13 | Outpatient (CLI) | payer OTHER ==
[~2021-05-13] MED LIST changes: +MIDAZOLAM INJ 2MG/2ML VIAL (J2250 PER 1MG) As Ordered ONE; +ONDANSETRON 4MG/2ML VIAL As Ordered ONE; +diphenhydrAMINE 25MG CAP As Ordered ONE; +diphenhydrAMINE 50MG/ML VIAL (J1200) As Ordered ONE; +fentaNYL 100 MCG/2 ML INJECTION (J3010) As Ordered ONE
--- NOTE | 2021-05-13 16:16 | REP ---
INDICATION: CAUDAL EPIDURAL STEROID INJECTION. COMPARISON: None. TECHNIQUE: Three views. Twelve seconds of fluoroscopy time is reported. FINDINGS: A sequence of 3 last image hold fluoroscopically obtained spot radiograph(s) of the sacrococcygeal spine document(s) needle position(s) and contrast injection associated with injection procedure. IMPRESSION: Procedural imaging. <Electronically signed by David Reis > 05/13/21 [id number]
--- NOTE | 2021-05-19 01:03 | ECWPNPC ---
PATIENT NAME: SONIA OLVERA : 1985 GENDER: FEMALE VISIT DATE: 05/13/2021 DISCHARGE DATE: 05/13/21 0000 VISIT LOCKED DATE TIME: PHYSICIAN: ALVIN WEBSTER MD RESOURCE: ALVIN WEBSTER MD REASON FOR APPOINTMENT 1. CAUDAL EPIDURAL STEROID INJECTION HISTORY OF PRESENT ILLNESS GENERAL: 35-YEAR-OLD FEMALE PATIENT WITH A HISTORY OF CHRONIC LOW BACK AND LEG PAIN. THE PATIENT DESCRIBES THE PAIN ACHING AND DULL WITH A PAIN SCORE RANGING FROM 6-9/10. SHE IS AT OUR FACILITY FOR A CAUDAL INJECTION. 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 SHE HAS A HISTORY OF A BACK SURGERY. PAIN SCREENING: PATIENT HAS A COMPLAINT OF ACUTE OR CHRONIC PAIN :YES LOCATION OF PAIN:LOW BACK INTENSITY OF PAIN (SCALE OF 1 TO 10):6 WHAT DOES YOUR PAIN FEEL LIKE:ACHING, OTHER DULL DURATION:CONTINOUS PAIN IS INCREASED BY:ACTIVITIES PAIN IS DECREASED BY:OTHERS REST, HEAT STATES SHE HAS FALLEN DOWN THE STAIRS 5 TIMES-LEFT LEG GIVES OUT ON HER. NOT EVALUATED AFTER. BRUISED RIGHT HANSEN AREA WHEN SHE FELL IN MARCH. ALSO FELL LAST WEEKEND-AFTER SHOE CAUGHT ON A CURB- FELL ONTO RIGHT SIDE-THINGS SHE PULLED A MUSCLE RIGHT SIDE OF BACK - NOT EVALUATED AFTER. NO BRUISING NOTED. Betty GARCIA RN. NURSING NOTE: - -. PAIN CENTER INTAKE QUESTIONS: DO YOU HAVE A HISTORY OF MRSA? :NO DO YOU TAKE A BLOOD THINNERS? :NO DO YOU HAVE ANY BLEEDING DISORDERS? :NO ANY NEW NUMBNESS OR WEAKNESS IN YOUR LEGS OR ARMS? :NO ANY PACEMAKER,DEFIBRILLATOR, OR DORSAL COLUMN STIMULATOR? :NO DO YOU HAVE ANY RASHES OR OPEN SORES? :NO ARE YOU ALLERGIC TO IV DYE? :NO ARE YOU DIABETIC? :NO ANY NEW PROBLEMS WITH YOUR MEDICATIONS? :NO HAVE YOU RECEIVED A VACCINE IN THE PAST 30 DAYS? :NO DO YOU PLAN TO RECEIVE A VACCINE IN THE NEXT 21 DAYS? :NO DO YOU TAKE ANY IMMUNOSUPPRESSIVE MEDICATIONS? :NO ANY HISTORY OF SEIZURES? :NO ANY HISTORY OF CARDIAC ISSUES OR EVENTS? :NO DO YOU HAVE ANY KIDNEY OR LIVER DISEASE? :NO DO YOU HAVE SLEEP APNEA? :NO ANY RECENT HEAD INJURY? :NO DO YOU HAVE ANY NEW INFECTIONS? :NO IS THERE A CHANCE YOU COULD BE ? :NO ARE YOU BREAST FEEDING? :NO WHEN DID YOU LAST EAT? : 05/13 0700 WHEN DID YOU LAST DRINK? : 05/13 1200 WHAT DID YOU LAST DRINK? : WATER NAME OF PERSON DRIVING YOU HOME? : -, FREDDY DO YOU HAVE ANY OTHER QUESTIONS OR CONCERNS? : -DENIES FALL RISK SCREENING: SCREENING : 6 FALLS IN THE PAST YEAR. 5 FALLS WERE DOWN STAIRS-LEFT LEG GIVES OUT ON HER. NOT EVALUATED AFTER. LAST TIME WAS IN MARCH WHEN SHE BRUISED RIGHT HANSEN. LAST WEEK SHE ALSO FELL WHEN HER TOE CAUGHT ON A CURB-THINKS SHE PULLED A MUSCLE RIGHT SIDE OF MID BACK. NO BRUISE NOTED. STATES AGAIN SHE WAS NOT EVALUATED AFTER THE FALL.. PAST MEDICAL HISTORY CHRONIC BACK PAIN WITH SEVERE LEG NERVE DAMAGE-LEFT NECK PAIN BIPOLAR DISORDER ADD DEPRESSION PTSD BILATERAL HIP PAIN OVER WEIGHT ONE FALL THIS YEAR, HURT HER BACK DID NOT GO TO THE ER ALLERGIES SEASONAL: ITCHY EYES,NASAL CONGESTION FAMILY HISTORY MOTHER: , LUNG CANCER 1 DAUGHTER(S) - HEALTHY. UNKNOWN HX FOR FATHER. SOCIAL HISTORY GENERAL: TOBACCO USE E-CIGARETTENO 1-5 TIMES DAILY. PT NOT INTERESTED IN QUITTING VAPORNO HOW LONG HAS IT BEEN SINCE YOU LAST SMOKED?1-3 MONTHS ARE YOU A:FORMER SMOKER LATEX QUESTIONNAIRE LATEX RISK : ARE YOU FREQUENTLY EXPOSED TO LATEX PRODUCTS IN YOUR OCCUPATION?NO LATEX RISK : DO YOU HAVE A PREVIOUS PERSONAL HISTORY OF MORE THAN NINE SURGERIES, SPINA BIFIDA, OR REPEATED CATHERIZATIONS? NO LATEX RISK : HAVE YOU EVER HAD ANY DIFFICULTY BREATHING OR HIVES AFTER EATING OR HANDLING ANY FRUITS, OR VEGETABLES; SUCH KIWI, BANANAS, STONE FRUITS, OR CHESTNUTSNO DATE ASKED : 04/09/2021 LATEX ALLERGY : HAVE YOU EVER DEVELOPED ANY TYPE OF REACTION DURING OR AFTER DENTAL APPOINTMENT, VAGINAL/RECTAL EXAMINATION, SURGICAL PROCEDURE, OR ANY OTHER EXPOSURE?NO LATEX ALLERGY : HAVE YOU EVER DEVELOPED ANY TYPE OF REACTION AFTER HANDLING LATEX PRODUCTS SUCH RUBBER GLOVES, CONDOMS, DIAPHRAGMS, BALLOONS, SOCKS, OR UNDERWEAR?NO ALCOHOL USE: NO. ALCOHOL SCREENING INTERPRETATIONNEGATIVE POINTS0 DID YOU HAVE A DRINK CONTAINING ALCOHOL IN THE PAST YEAR?NO RECREATIONAL DRUG USE DRUG USE?NO DOES CBD OIL FOR PAIN/INFLAMMATION LANGUAGE LANGUAGES SPOKEN:[place] EDUCATION LEVEL OF EDUCATION:HIGH SCHOOL LEARNING BARRIERS / SPECIAL NEEDS ADMEASURER NEEDED?NO :CANE USES OCCASSIONALLY SPECIAL DEVICES?YES EMOTIONAL BARRIERS?NO LEARNING CAPABILITIES PRESENT?YES LEARNING PREFERENCES?NO READINESS TO LEARN?YES :CORRECTIVE LENSES COGNITIVELY IMPAIRED?NO VISION IMPAIRED?YES LIGHT SENSITIVITY. 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 MARITAL STATUS: . - HAS THE PATIENT BEEN EDUCATED REGARDING PAIN, THE RISK FOR PAIN, THE IMPORTANCE OF EFFECTIVE PAIN MANAGEMENT, AND THE PAIN ASSESSMENT PROCESS?YES HAS THE PATIENT BEEN EDUCATED REGARDING HIS/HER PLAN OF CARE?YES PUBLIC HEALTH REFERRAL NEEDED?NO CLERGY REFERRAL NEEDED?NO PFS REFERRAL NEEDED?NO ADVANCE DIRECTIVE ADVANCE DIRECTIVE DISCUSSED WITH PATIENT:YES 09/30/2020 PATIENT DOES NOT HAVE ANY ADVANCED DIRECTIVES AND SHE DECLINES INFORMATION ON HCP AT THIS TIME REVIEW OF SYSTEMS GLAUCOMA: NOTHYROID DISEASE: NOHYPERTENSION: NOHEART DISEASE: NOLUNG DISEASE: NODIABETES: NOGI DISEASE: NO LIVER DISEASE: NO KIDNEY DISEASE: NOSTERIOD USE: NONEUROLOGICAL DISEASE: NOBACK PROBLEMS: NOEXTREMITIES: NOGENITOURINARY: NOBLEEDING DISORDER: NOASA CLASS:AIRWAY CLASS:. VITAL SIGNS WT 243.0 LBS, HT 64 IN, BMI 41.71 INDEX, BP 138/71 MM HG, HR 95 /MIN, RR 18 /MIN, TEMP 97.6 F, OXYGEN SAT % 94%, SAFE IN ENV? (Y/N) Y, NA INITIALS AW 1347, REVIEWED BY: KAROL VILLELA. EXAMINATION GENERAL: THE PATIENT IS ALERT, ORIENTED TIMES THREE AND COOPERATIVE. LUNGS ARE CLEAR TO AUSCULTATION. HEART SHOWS REGULAR RHYTHM, NO MURMURS AND NO GALLOPS. THE LEFT LEG IS WEAKER THAN THE RIGHT LEG ON EXTENSION. MRI OF THE LUMBAR SPINE IS SHOWING LAMECTOMY CHANGES. ASSESSMENTS POST LAMINECTOMY SYNDROME - M96.1 (PRIMARY) TREATMENT POST LAMINECTOMY SYNDROME MED: PAIN VERSED 1MG IV [id number],JAMIE L 05/13/2021 3:29:39 PM > VERIFIED. ROGERIO JENSEN 05/13/2021 3:56:17 PM > SECOND DOSE ORDERED, VERIFIED BY ROGERIO BERRIOS 05/13/2021 3:58:43 PM > THIRD DOSE ORDERED, VERIFIED BY DOTTIE ADDISON 05/13/2021 4:19:13 PM > 1ST DOSE OF VERSED 1 MG GIVEN 1550 2ND DOSE OF VERSED 1 MG GIVEN 1555 3RD DOSE OF VERSED 1 MG GIVEN 1558 FOR A TOTAL OF 3 MG VERSED GIVEN IV MEDICATION: PAIN FENTANYL CITRATE 50MCG IV [id number],JAMIE L 05/13/2021 3:29:58 PM > VERIFIED. ROGERIO JENSEN 05/13/2021 3:56:29 PM > SECOND DOSE ORDERED, VERIFIED BY ROGERIO BERRIOS 05/13/2021 3:58:56 PM > THIRD DOSE ORDERED, VERIFIED BY DOTTIE ADDISON 05/13/2021 4:22:34 PM > FENTANYL 1ST DOSE 50MCG GIVEN 1551 2ND DOSE FENTANYL 50 MCG GIVEN 1556 3RD DOSE FENTNYL 50 MCG GIVEN 1559 FOR A TOTAL OF 150MCG GIVEN OXYGEN AT 2 LITERS PER NASAL [id number],ANITA 05/13/2021 4:28:08 PM > ON AT 1539, OFF AT 1603 MEDICATION: PAIN VALIUM TAB 10MG ORALLY (DIAZEPAM)[id number],ROBERTO 05/13/2021 2:19:38 PM > VERIFIED. ADITI GARCIA 05/13/2021 2:24:34 PM > ADMINISTERED MEDICATION: PAIN OXYCODONE HCL TAB 10MG [id number],ROBERTO 05/13/2021 2:20:04 PM > VERIFIED. ADITI GARCIA 05/13/2021 2:24:59 PM > ADMINISTERED IV LACTATED RINGER'S AT [id number],JAMIE L 05/13/2021 3:26:27 PM > LR STARTED AT KVO PER ORDER AT THIS TIME. ADITI GARCIA 05/13/2021 4:29:11 PM > TOTAL OF 50 ML INFUSED COMPLETION OF PROCEDURAL VISIT WHEN MEETS [id number],ANITA 05/13/2021 5:02:26 PM > CRITERIA MET 1646 MEDICATION: PAIN ZOFRAN 4MG/2ML IV [id number],JAMIE L 05/13/2021 3:28:58 PM > VERIFIED. DOTTIE YOUSSEF 05/13/2021 3:32:37 PM > GIVEN MED: PAIN BENADRYL 25MG IV [id number],JAMIE L 05/13/2021 3:29:20 PM > VERIFIED. DOTTIE YOUSSEF 05/13/2021 3:33:13 PM > GIVEN MED: PAIN BENADRYL TAB 25MG ORALLY [id number],MELISSA 05/13/2021 2:19:52 PM > VERIFIED. ADITI GARCIA 05/13/2021 2:25:15 PM > ADMINISTERED SALINE [id number],ANITA 05/13/2021 2:41:11 PM > SL STARTED ON 2ND ATTEMPT WITH #20G IN LEFT HAND. 1ST ATTEMPT INFILTRATED WITH CATH. THREADING. PT TOLERATED WELL. CLINICAL NOTES: I DISCUSSED ALTERNATIVES WITH MS. OLVERA. WE AGREE ON MOVE FORWARD WITH A CAUDAL EPIDURAL WITH IV SEDATION DUE TO ANXIETY AND DISCOMFORT ASSOCIATED WITH THE PROCEDURE. I TRIED FIRST WITH ORAL MEDICATIONS BUT THE PATIENT WAS VERY ANXIOUS AND COULD NOT DO THE PROCEDURE. THE PATIENT REPORTS UNDERSTANDING AND AGREES WITH THE PLAN. I, ROGERIO JENSEN, DOCUMENTED THE ABOVE INFORMATION ACTING A SCRIBE FOR DR. WEBSTER. I HAVE REVIEWED THE ABOVE DOCUMENT, WRITTEN BY ROGERIO JENSEN, FILLER PICKER, AND I VERIFY THAT IT IS ACCURATE. PROCEDURES PAIN NURSING RECORD PROCEDURE IN ROOM 1538, PHYSICIAN IN ROOM 1548, START 1556, FINISH 1600, PHYSICIAN OUT OF ROOM 1602, OUT OF ROOM 1612 VIA STRETCHER, ECG NORMAL SINUS, PATIENT SHIELDED YES, SAFETY STRAP YES, PREP BETADINE Betty GARCIA RN, DRESSING TEGADERM DR. WEBSTER LOC: ADITI GARCIA 05/13/2021 3:43:23 PM > 1. ALERT, ORIENTED ADITI GARCIA 05/13/2021 3:57:07 PM > 1. ALERT, ORIENTED ADITI GARCIA 05/13/2021 4:16:25 PM > 1. ALERT, ORIENTED RESP: ADITI GARCIA 05/13/2021 3:43:27 PM > 1. REGULAR, NO DYSPNEA ADITI GARCIA 05/13/2021 3:57:13 PM > 1. REGULAR, NO DYSPNEA JOSEHANFORD 05/13/2021 4:16:31 PM > 1. REGULAR, NO DYSPNEA COLOR: JOSEADITI 05/13/2021 3:43:31 PM > 1. PINK JOSEADITI 05/13/2021 3:57:19 PM > 1. PINK JOSEADITI 05/13/2021 4:16:52 PM > 1. PINK SKIN: JOSEHANFORD 05/13/2021 3:43:35 PM > 1. WARM, DRY JOSEHANFORD 05/13/2021 3:57:28 PM > 1. WARM, DRY JOSE,HANFORD 05/13/2021 4:16:58 PM > 1. WARM, DRY POSITION: JOSE,HANFORD 05/13/2021 3:43:41 PM > 1. PRONE JOSEHANFORD 05/13/2021 3:57:33 PM > 1. PRONE JOSEHANFORD 05/13/2021 4:17:06 PM > 2. SUPINE WITH HOB ELEVATED VITALS: 1440 P94 0293% R18 BP 131/72 AW P88 02 98% R18 BP 116/57 AW 1505 P88 R18 0298% BP 125/64 AW JOSEHANFORD 05/13/2021 3:43:51 PM > 127/70,88,16,100% [facility] 05[facility]13[facility] 3:48:06 PM > 138/77,92,18,99 JOSEHANFORD 05/13/2021 3:50:42 PM > 138/78,92,18,100% [facility] 05/13/2021 3:52:43 PM > 145/87,93,16,100% JOSE,HANFORD 05/13/2021 3:57:40 PM > 146/91,98,16,98% [facility] 05/13/2021 4:02:41 PM > 143/80,96,16,99% JOSE,HANFORD 05/13/2021 4:07:51 PM > 140/79,94,16,98% [facility] 05/13/2021 4:14:14 PM > 122/80,97,18,98% ADITI GARCIA 05/13/2021 4:26:04 PM > 120/70,87,16,98% ADITI GARCIA 05/13/2021 4:38:42 PM > 124/67,90,16,98% COMPLETION OF PROCEDURE APPOINTMENT: POST PAIN 3, DRESSING SITE DRY AND INTACT, IV DISCONTINUED, SITE CLEAR, CATHETER INTACT, GAIT WHEELCHAIR, TEACHING COMPLETED, PATIENT ACKNOWLEDGES UNDERSTANDING YES, PROCEDURE APPOINTMENT COMPLETED AT 1646 BY: Betty GARCIA RN PN CAUDAL EPIDURALS PRE PROCEDURE DIAGNOSIS LUMBAR POST LAMINECTOMY PAIN SYNDROME POST PROCEDURE DIAGNOSIS LUMBAR POST LAMINECTOMY PAIN SYNDROME PROCEDURE CAUDAL EPIDURAL STEROID INJECTION SURGEON DR. ALVIN WEBSTER HOT BREAD BAKER NONE ANESTHESIA LOCAL WITH IV SEDATION PRE PROCEDURE NOTE THE PATIENT HAS HISTORY OF CHRONIC LOW BACK PAIN. I EVALUATED THE PATIENT AND REVIEWED THE CHART. I WENT OVER THE RISKS, ALTERNATIVES, AND BENEFITS ASSOCIATED WITH THIS PROCEDURE. THE PATIENT WOULD LIKE TO PROCEED AND GIVE CONSENT TO PERFORMED THE PROCEDURE. THE PATIENT WOULD LIKE TO MOVE FORWRAD WITH IV SEDATION DUE TO ANXIETY AND DISCOMFORT ASSOCIATED WITH THE PROCEDURE. THE PATIENT DENIES UNEXPLAINABLE WEIGHT LOSS, FEVER, CHILLS, OR NEW CHANGES IN URINARY OR BOWEL CONTROL. THE PATIENT IS COVID-19 NEGATIVE DESCRIPTION OF PROCEDURE THE PATIENT WAS BROUGHT TO THE PROCEDURE ROOM AND PLACED IN THE PRONE POSITION. THE LUMBOSACRAL AREA WAS CLEANED WITH BETADINE SOLUTION AND DRAPED ASEPTICALLY. THE PROCEDURE WAS DONE UNDER STERILE CONDITIONS. A TIMEOUT WAS PERFORMED WHERE THE CONSENTED SITE WAS VERIFIED WITH EVERYONE IN THE ROOM. UNDER FLUOROSCOPIC GUIDANCE, THE TARGET POINT WAS SELECTED AT THE EPIDURAL SPACE BELOW THE SACROCOCCYGEAL LIGAMENT. I CONFIRMED AGAIN THE SITE OF TARGET. LIDOCAINE 0.5% WAS USE TO NUMB THE SKIN AND THE SUBCUTANEOUS TISSUE BELOW IT. SPINAL NEEDLE, 22-GAUGE 3.5 INCH, WAS ADVANCED UNDER FLUOROSCOPIC GUIDANCE AND FOLLOWING PATIENT FEEDBACK UNTIL THE EPIDURAL SPACE WAS REACHED BY THE LOSS OF RESISTANCE TECHNIQUE. ISOVUE M DYE 30%, 0.25 ML, WAS INJECTED SHOWING ADEQUATE SPREAD OF THE DYE. THEN, A SOLUTION OF 6 ML OF NORMAL SALINE WITH DEPO-MEDROL 40 MG WAS INJECTED SLOWLY FOLLOWING THE PATIENT FEEDBACK. THERE WAS NO EVIDENCE OF BLOOD, PARESTHESIA OR CEREBROSPINAL FLUID DURING THE PROCEDURE. THE PATIENT WAS SENT TO THE RECOVERY ROOM. THE PATIENT WAS MOVING THE EXTREMITIES AND DOING WELL. THERE WAS NO COMPLICATION DURING THE PROCEDURE. ESTIMATED BLOOD LOSS LESS THAN 5 ML. FLUOROSCOPY TIME WAS 12 SECONDS. THE PATIENT RECEIVED VERSED 3 MG AND FENTANYL 150 MCG IV IN DIVIDED DOSES. FACE TO FACE START TIME: 1550 FACE TO FACE END TIME: 1602 TOTAL FACE TO FACE TIME: 12 MINUTES. POST PROCEDURE NOTE DEPENDING ON THE RESULTS, CONSIDER A LEFT TRANSFORAMINAL OR A GREATER TROCHANTER OF THE FEMER INJECTION. THE PATIENT SHOULD ALWAYS HAVE IV SEDATION FOR EVERY PROCEDURE DUE TO THE ANXIETY AND DISCOMFORT. THE PATIENT WILL BE SEEN IN A FOLLOW UP IN THE NEXT FEW WEEKS. I AM LOOKING FOR LONG LASTING RELIEF FOR THE PATIENT WITH THIS INTERVENTION. INSTRUCTIONS WERE GIVEN, QUESTIONS WERE ANSWERED, AND THE PATIENT EXPRESSED UNDERSTANDING AND AGREES WITH THE PLAN. I, ROGERIO JENSEN, DOCUMENTED THE ABOVE INFORMATION ACTING A SCRIBE FOR DR. WEBSTER. I HAVE REVIEWED THE ABOVE DOCUMENT, WRITTEN BY ROGERIO JENSEN, FILLER PICKER, AND I VERIFY THAT IT IS [facility] FLUORO GUIDE SPINE INJECTION (PAIN)[id number] PROCEDURE CODES 49910 LUMBAR/SACRAL W/ IMAGING 96257 MOD SED SAME PHYS/QHP 5/>YRS DISPOSITION & COMMUNICATION FOLLOW UP FOLLOW UP WITH [facility]TR[facility]GE TESTER (REASON: POST CAUDAL EPIDURAL STEROID INJECTION WITH IV SEDATION) ELECTRONICALLY SIGNED BY ALVIN WEBSTER MD, MD ON 05/18/2021 AT 10:33 AM EDT DISCLAIMER : THIS IS A VISIT SUMMARY EXTRACTED FROM THE [employer] CHART. IT IS NOT A COPY OF THE [employer] PROGRESS NOTE. MTDSharri
== END ==
LOC: M PAIN 14:00
PROVIDERS: ATTEND Anesthesiology
DX: M96.1 Postlaminectomy syndrome, not elsewhere classified (principal); M51.16 Intervertebral disc disorders with radiculopathy, lumbar region; M51.17 Intervertebral disc disorders with radiculopathy, lumbosacral region; F31.9 Bipolar disorder, unspecified; F90.9 Attention-deficit hyperactivity disorder, unspecified type; F43.10 Post-traumatic stress disorder, unspecified; M25.551 Pain in right hip; M25.552 Pain in left hip; Z87.891 Personal history of nicotine dependence; Z79.899 Other long term (current) drug therapy; J30.2 Other seasonal allergic rhinitis
CPT/HCPCS: 62323; 99152; J1030; J1200; J2250; J2405; J3010; Q9967

== ENCOUNTER → 2021-05-27 | Outpatient (CLI) | payer OTHER | LOC: M PAIN 11:00 | PROVIDERS: ATTEND Anesthesiology | DX: G89.29 Other chronic pain (principal); M96.1 Postlaminectomy syndrome, not elsewhere classified; M79.18 Myalgia, other site; M54.2 Cervicalgia; F31.9 Bipolar disorder, unspecified; F43.10 Post-traumatic stress disorder, unspecified; Z98.1 Arthrodesis status; Z87.891 Personal history of nicotine dependence; Z79.899 Other long term (current) drug therapy; J30.2 Other seasonal allergic rhinitis ==

== ENCOUNTER → 2021-07-29 | Outpatient (CLI) | payer OTHER | LOC: M LABSMTC 10:11 | PROVIDERS: ATTEND Anesthesiology | DX: Z01.818 Encounter for other preprocedural examination (principal); Z11.52 Encounter for screening for COVID-19 ==

== ENCOUNTER → 2021-08-03 | Outpatient (CLI) | payer OTHER ==
[~2021-08-03] MED LIST changes: +BUPIVACAINE HCL 0.25% 10ML VIAL As Ordered ONE; +BUPIVACAINE HCL 0.25% 30ML VIAL As Ordered ONE; -ISOVUE-M 300 61% 15ML VIAL As Ordered ONE; -LIDOCAINE 1% SDV 30ML VIAL As Ordered ONE; -MIDAZOLAM INJ 2MG/2ML VIAL (J2250 PER 1MG) As Ordered ONE; +ONDANSETRON 4 MG ORAL DISINTEGRATING TAB As Ordered ONE; -ONDANSETRON 4MG/2ML VIAL As Ordered ONE; +TRIAMCINOLONE ACETONIDE SUSP 40 MG/ML VIAL (J3301) As Ordered ONE; -diphenhydrAMINE 25MG CAP As Ordered ONE; -diphenhydrAMINE 50MG/ML VIAL (J1200) As Ordered ONE; -fentaNYL 100 MCG/2 ML INJECTION (J3010) As Ordered ONE; -methylPREDNISolone SUSP 40MG/ML 1ML VIAL (DEPO MEDROL) As Ordered ONE
== END ==
LOC: M PAIN 14:00
PROVIDERS: ATTEND Anesthesiology
DX: M79.10 Myalgia, unspecified site (principal); F17.290 Nicotine dependence, other tobacco product, uncomplicated; Z86.59 Personal history of other mental and behavioral disorders; E66.01 Morbid (severe) obesity due to excess calories; Z68.41 Body mass index [BMI] 40.0-44.9, adult; Z79.899 Other long term (current) drug therapy
CPT/HCPCS: 20552; 90834; J3301; Q0162

== ENCOUNTER → 2021-08-26 | Outpatient (CLI) | payer OTHER | LOC: M PAIN 14:45 | PROVIDERS: ATTEND Anesthesiology | DX: Z53.21 Procedure and treatment not carried out due to patient leaving prior to being seen by health care provider (principal) ==

== ENCOUNTER → 2021-10-29 | Outpatient (CLI) | payer OTHER | LOC: M PAIN 14:15 | PROVIDERS: ATTEND Anesthesiology | DX: M51.16 Intervertebral disc disorders with radiculopathy, lumbar region (principal); M54.2 Cervicalgia; F31.9 Bipolar disorder, unspecified; F43.10 Post-traumatic stress disorder, unspecified; Z79.899 Other long term (current) drug therapy; Z87.891 Personal history of nicotine dependence; J30.2 Other seasonal allergic rhinitis ==

== ENCOUNTER → 2022-03-21 | Outpatient (CLI) | payer OTHER | LOC: M PAIN 14:00 | PROVIDERS: ATTEND Anesthesiology | DX: M96.1 Postlaminectomy syndrome, not elsewhere classified (principal); M51.16 Intervertebral disc disorders with radiculopathy, lumbar region; M54.2 Cervicalgia; F31.9 Bipolar disorder, unspecified; F90.9 Attention-deficit hyperactivity disorder, unspecified type; M25.551 Pain in right hip; M25.552 Pain in left hip; F32.A Depression, unspecified; J30.2 Other seasonal allergic rhinitis; F43.10 Post-traumatic stress disorder, unspecified; Z87.891 Personal history of nicotine dependence; Z79.899 Other long term (current) drug therapy ==

== ENCOUNTER → 2022-04-06 | Outpatient (CLI) | payer OTHER ==
[~2022-04-06] MED LIST changes: +ADDE1TAB14 PO; +ADVA45AE INH; -BUPIVACAINE HCL 0.25% 10ML VIAL As Ordered ONE; -BUPIVACAINE HCL 0.25% 30ML VIAL As Ordered ONE; +FLON1SPR; +GABA-282 PO; +LAMO200T3 PO; +LORA-243 PO; +METH-1165 PO; -ONDANSETRON 4 MG ORAL DISINTEGRATING TAB As Ordered ONE; +PRAZ2CAP PO; +PROAAER10 INH; +SERO400T PO; +TRI-1TAB PO; -TRIAMCINOLONE ACETONIDE SUSP 40 MG/ML VIAL (J3301) As Ordered ONE; -diazePAM 5MG TABLET As Ordered ONE; -oxyCODONE 5MG TAB As Ordered ONE
== END ==
LOC: M LABSMTC 09:18
PROVIDERS: ATTEND Anesthesiology
DX: Z01.818 Encounter for other preprocedural examination (principal); Z11.52 Encounter for screening for COVID-19

== ENCOUNTER 2022-04-11 08:43 | Day surgery (SDC) | payer OTHER ==
[~2022-04-11] VITALS: Ht 165.1 cm; Wt 111.1 kg
[2022-04-11] MEDS ORDERED: IBUP-1022 PO (11:08)
[2022-04-11] MEDS ORDERED: LIDOCAINE 1% MDV 20ML VIAL As Ordered ONE (12:19)
[2022-04-11] MEDS ORDERED: ISOVUE-300 61% 50ML VIAL As Ordered ONE (12:20)
[2022-04-11] MEDS ORDERED: dexameTHASONE 10MG/1ML VIAL PRES.FREE (J1100 PER 1MG) As Ordered ONE (12:20)
[2022-04-11] MEDS ORDERED: BUPIVACAINE HCL 0.25% 30ML VIAL As Ordered ONE (12:20)
[2022-04-11] MEDS ORDERED: fentaNYL 100 MCG/2 ML INJECTION As Ordered ONE ×2 (12:40→13:27)
[2022-04-11] MEDS ORDERED: MIDAZOLAM INJ 2MG/2ML VIAL (J2250 PER 1MG) As Ordered ONE (12:40)
[2022-04-11] MEDS ORDERED: propofoL 200 MG/20 ML VIAL As Ordered ONE (13:16)
[2022-04-11 14:40] VITALS: BP 139/74
== END 2022-04-11 14:45 | disposition home or self-care (01) ==
LOC: M SDC 08:43
PROVIDERS: ATTEND Anesthesiology
DX: M96.1 Postlaminectomy syndrome, not elsewhere classified (principal); M54.50 Low back pain, unspecified
CPT/HCPCS: 64483; 76000; 81025; J1100; J2250; J3010; Q9967

== ENCOUNTER → 2022-05-13 | Outpatient (CLI) | payer OTHER ==
[~2022-05-13] MED LIST changes: +IBUP-1022 PO
== END ==
LOC: M PAIN 10:45
PROVIDERS: ATTEND Anesthesiology
DX: M54.2 Cervicalgia (principal); M79.10 Myalgia, unspecified site; M79.18 Myalgia, other site; F31.9 Bipolar disorder, unspecified; F43.10 Post-traumatic stress disorder, unspecified; F98.8 Other specified behavioral and emotional disorders with onset usually occurring in childhood and adolescence; M25.551 Pain in right hip; M25.552 Pain in left hip; E66.3 Overweight; Z98.1 Arthrodesis status; Z79.891 Long term (current) use of opiate analgesic; Z87.891 Personal history of nicotine dependence; Z79.899 Other long term (current) drug therapy; J30.2 Other seasonal allergic rhinitis; Z68.41 Body mass index [BMI] 40.0-44.9, adult

== ENCOUNTER → 2022-06-10 | Outpatient (CLI) | payer OTHER | LOC: M PLAIMG 09:41 | PROVIDERS: ATTEND Anesthesiology | DX: M50.222 Other cervical disc displacement at C5-C6 level (principal); M48.02 Spinal stenosis, cervical region ==

== ENCOUNTER → 2022-08-05 | Outpatient (CLI) | payer OTHER | LOC: M PAIN 11:30 | PROVIDERS: ATTEND Anesthesiology | DX: M54.2 Cervicalgia (principal); M79.10 Myalgia, unspecified site; M79.18 Myalgia, other site; F31.9 Bipolar disorder, unspecified; F90.9 Attention-deficit hyperactivity disorder, unspecified type; F43.10 Post-traumatic stress disorder, unspecified; M25.551 Pain in right hip; M25.552 Pain in left hip; E66.3 Overweight; Z98.1 Arthrodesis status; Z87.891 Personal history of nicotine dependence; Z79.891 Long term (current) use of opiate analgesic; Z79.899 Other long term (current) drug therapy; J30.2 Other seasonal allergic rhinitis; Z68.41 Body mass index [BMI] 40.0-44.9, adult ==

== ENCOUNTER → 2022-08-25 | Outpatient (CLI) | payer OTHER | LOC: M LABSMTC 11:26 | PROVIDERS: ATTEND Anesthesiology | DX: Z01.812 Encounter for preprocedural laboratory examination (principal); Z11.52 Encounter for screening for COVID-19 ==

== ENCOUNTER → 2022-08-30 | Outpatient (CLI) | payer OTHER ==
[~2022-08-30] MED LIST changes: +BUPIVACAINE HCL 0.25% 10ML VIAL As Ordered ONE; +BUPIVACAINE HCL 0.25% 30ML VIAL As Ordered ONE; +ONDANSETRON 4MG ORAL DISINTEGRATING TAB As Ordered ONE; +TRIAMCINOLONE ACETONIDE SUSP 40 MG/ML VIAL (J3301) As Ordered ONE; +diazePAM 5MG TABLET As Ordered ONE; +oxyCODONE 5MG TAB As Ordered ONE
== END ==
LOC: M PAIN 08:00
PROVIDERS: ATTEND Anesthesiology
DX: M79.12 Myalgia of auxiliary muscles, head and neck (principal); F31.9 Bipolar disorder, unspecified; F90.9 Attention-deficit hyperactivity disorder, unspecified type; F43.10 Post-traumatic stress disorder, unspecified; M25.551 Pain in right hip; M25.552 Pain in left hip; Z87.891 Personal history of nicotine dependence; Z79.899 Other long term (current) drug therapy; J30.2 Other seasonal allergic rhinitis
CPT/HCPCS: 20553; J3301

== ENCOUNTER → 2022-09-21 | Outpatient (CLI) | payer OTHER ==
[~2022-09-21] MED LIST changes: -BUPIVACAINE HCL 0.25% 10ML VIAL As Ordered ONE; -BUPIVACAINE HCL 0.25% 30ML VIAL As Ordered ONE; -ONDANSETRON 4MG ORAL DISINTEGRATING TAB As Ordered ONE; -TRIAMCINOLONE ACETONIDE SUSP 40 MG/ML VIAL (J3301) As Ordered ONE; -diazePAM 5MG TABLET As Ordered ONE; -oxyCODONE 5MG TAB As Ordered ONE
== END ==
LOC: M PAIN 10:00
PROVIDERS: ATTEND Anesthesiology
DX: G89.29 Other chronic pain (principal); M50.10 Cervical disc disorder with radiculopathy, unspecified cervical region; M48.02 Spinal stenosis, cervical region; F31.9 Bipolar disorder, unspecified; F90.9 Attention-deficit hyperactivity disorder, unspecified type; F32.A Depression, unspecified; F43.10 Post-traumatic stress disorder, unspecified; M25.551 Pain in right hip; M25.552 Pain in left hip; J30.2 Other seasonal allergic rhinitis; E66.3 Overweight; Z98.1 Arthrodesis status; Z87.891 Personal history of nicotine dependence; Z79.899 Other long term (current) drug therapy

== ENCOUNTER → 2023-01-09 | Outpatient (CLI) | payer OTHER | LOC: M LABSMTC 10:47 | PROVIDERS: ATTEND Anesthesiology | DX: Z01.818 Encounter for other preprocedural examination (principal); Z11.52 Encounter for screening for COVID-19 ==

== ENCOUNTER → 2023-01-13 | Outpatient (CLI) | payer OTHER | LOC: M PAIN 10:15 | PROVIDERS: ATTEND Anesthesiology | DX: M50.10 Cervical disc disorder with radiculopathy, unspecified cervical region (principal); M25.511 Pain in right shoulder; F31.9 Bipolar disorder, unspecified; F43.10 Post-traumatic stress disorder, unspecified; Z87.891 Personal history of nicotine dependence; Z79.899 Other long term (current) drug therapy; J30.2 Other seasonal allergic rhinitis ==

== ENCOUNTER → 2023-02-09 | Outpatient (CLI) | payer OTHER | LOC: M PLARAD 09:41 | PROVIDERS: ATTEND Anesthesiology | DX: M67.813 Other specified disorders of tendon, right shoulder (principal); M19.011 Primary osteoarthritis, right shoulder ==

== ENCOUNTER → 2023-03-01 | Outpatient (CLI) | payer OTHER | LOC: M PAIN 09:15 | PROVIDERS: ATTEND Anesthesiology | DX: M25.511 Pain in right shoulder (principal); G89.29 Other chronic pain; M54.2 Cervicalgia; F31.9 Bipolar disorder, unspecified; F43.10 Post-traumatic stress disorder, unspecified; M25.551 Pain in right hip; M25.552 Pain in left hip; E66.3 Overweight; Z87.891 Personal history of nicotine dependence; Z79.899 Other long term (current) drug therapy; J30.2 Other seasonal allergic rhinitis; Z68.41 Body mass index [BMI] 40.0-44.9, adult ==

== ENCOUNTER → 2023-07-20 | Outpatient (CLI) | payer OTHER | LOC: M PAIN 11:30 | PROVIDERS: ATTEND Anesthesiology | DX: M25.511 Pain in right shoulder (principal); G89.29 Other chronic pain; M54.2 Cervicalgia; F31.9 Bipolar disorder, unspecified; F90.9 Attention-deficit hyperactivity disorder, unspecified type; F43.10 Post-traumatic stress disorder, unspecified; M25.551 Pain in right hip; M25.552 Pain in left hip; Z87.891 Personal history of nicotine dependence; Z79.899 Other long term (current) drug therapy; J30.2 Other seasonal allergic rhinitis ==